=== PATIENT | female | born 1995 | race Caucasian/White ===

== ENCOUNTER 2024-05-05 11:09 | Outpatient (AMB) | payer BC, SELFPAY ==
--- NOTE | 2024-05-05 11:07 | A.OFFPC_ITS ---
Vital Signs 05/05/24 11:15 Height 5 ft 7 in Weight 182 lb 6 oz BMI 28.6 BP 102/64 Blood Pressure Location Lt brachial Position Sitting Respiration 14 Pulse 77 Pulse Source Pulse Oximeter Temp 98.2 F Temp Source Oral Pulse Oximetry (%) 99 Oxygen Delivery Method Room Air Intake Visit Reasons: [facility] from [facility] Allergies amoxicillin Allergy (Unknown, Verified 05/05/24 11:10) Unknown Sulfa (Sulfonamide Antibiotics) Allergy (Unknown, Verified 05/05/24 11:10) Unknown Tobacco use date assessed: 05/05/24 Dental Screening Dental Screen Date: 05/05/24 Did you have a dental visit in the last 12 months?: Yes Did you have a dental problem in the last 6 months where you did not have access to dental care?: No Was dental information given to patient?: Patient has dentist HPI [facility] from [facility] HPI Details Patient is a 28-year-old female who [facility]. She is transferring from [facility]. She states that we last had a physical in November with normal labs. She is overall feeling well. -she states that she did have an infecte d cyst on her upper back a couple of weeks ago so that was why she called to make the appointment but has since gone away. She states she stop manipulating the area and symptoms resolved. Psych: Following with a psychiatrist in her anxiety, depression and ADHD currently well-controlled with Adderall, buspirone and fluoxetine. No SI/HI General: Recently started working out and weightlifting and states that this is helpful. She is feeling better physically and mentally. Neuro: Has infrequent migraines in use is rizatriptan p.r.n. along with Zofran. 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 [facility] Medical History (Updated 05/05/24 @ 12:49 by Oly Guevara PA-C) Recurrent cold sores Overweight with body mass index (BMI) of 28 to 28.9 in adult Generalized anxiety disorder Dysthymia Asthma ADHD Social History Housing: House Patient Tobacco Use Status: Never used Tobacco e-Cigarette/Vaping Use: Never Used Second Hand Smoke Exposure: No service: No Current occupational status: unemployed Cognitive needs: No Hearing needs: No Vision needs: Yes (contacts) Questionnaire PHQ-9 Over the last 2 weeks, how often have you been bothered by any of the following problems? 1. Little interest or pleasure in doing things: not at all 2. Feeling down, depressed, or hopeless: not at all 3. Trouble falling or staying asleep, or sleeping too much: not at all 4. Feeling tired or having little energy: not at all 5. Poor appetite or overeating: not at all 6. Feeling bad about yourself - or that you are a failure or have let yourself or your family down: not at all 7. Trouble concentrating on things, such as reading the newspaper or watching television: not at all 8. Moving or speaking so slowly that other people could have noticed. Or the opposite - being so fidgety or restless that you have been moving around a lot more than usual: not at all 9. Thoughts that you would be better off or of hurting yourself in some way: not at all Total score: 0 Depression Screening Interpretation: Negative Depression Screening Done: Yes 63553 - PHQ-9 Billing: Yes Source: Developed by Drs. Patricio Rowe, Gladis Garcia, Feliz Hidalgo and colleagues, with an educational elio from [employer]. Thrive Questionnaire Date Thrive assessed: 05/05/24 I am a: Patient What is your living situation today?: I have a steady place to live Within the past 12 months, did the food you bought not last and you didn't have the money to get more?: Never true Within the past 12 months, did you worry whether your food would run out before you got money to buy more?: Never true Do you have trouble paying for medicines?: No Do you have trouble getting transportation to medical appointments?: No Do you have trouble paying your heating and electricity bill?: No Do you have trouble taking care of your child, family member or friend?: No Do you have trouble with day-to-day activities such as bathing, preparing meals, shopping, managing finances, etc.?: No Are you currently unemployed and looking for a job?: No Are you interested in more education?: No Please select the resources that you would like help with: None Currently or been in a relationship where the following occur: No concerns reported THRIVE Score: 0 AUDIT C Alcohol Use Questionnaire (AUDIT-C) 1. How often do you have a drink containing alcohol?: 2-4 times a month 2. How many drinks containing alcohol do you have on a typical day when you are drinking?: 3 or 4 3. How often do you have six or more drinks on one occasion?: Never Total Score: 3 Score Reviewed/Action Taken: Yes NAKUL-7 AMB Questionnaire NAKUL-7 Date NAKUL - 7 assessed: 05/05/24 Feeling nervous, anxious, or on edge: 0 = Not at all Not being able to stop or control worryin = Not at all Worrying too much about different things: 0 = Not at all Trouble relaxin = Not at all Being so restless that it is hard to sit still: 0 = Not at all Becoming easily annoyed or irritable: 1 = Several days Feeling afraid as if something awful might happen: 0 = Not at all Total NAKUL-7 score (0-4 normal; 5-9 mild; 10-14 moderate; 15-21 severe): 1 Source: Developed by Drs. Patricio Rowe, Gladis Garcia, Feliz Hidalgo and colleagues, with an educational elio from [employer]. NAKUL-7 Assessment Billing NAKUL-7 Assessment Tool: NAKUL-7 Assessment 31607 Physical exam (Primary Care) Vital Signs: Last Vital Signs Temp 98.2 F 05/05/24 11:15 Pulse 77 05/05/24 11:15 Resp 14 05/05/24 11:15 BP 102/64 05/05/24 11:15 Pulse Ox 99 05/05/24 11:15 Oxygen Delivery Method Room Air 05/05/24 11:15 BMI result Body Mass Index 28.6 Tobacco/Smoking Status: Tobacco use Status Tobacco use date assessed 05/05/24 05/05/24 11:17 Patient Tobacco Use Status Never used Tobacco 05/05/24 11:17 e-Cigarette/Vaping Use Never Used 05/05/24 11:17 PHQ-9: PHQ-9 Score PHQ-9: Total score 0 05/05/24 12:12 Depression Screening Interpretation: Negative Thrive Assessment: Date of Thrive Assessment Date Thrive assessed 05/05/24 05/05/24 12:12 Currently or been in a relationship where the following occur: No concerns reported Const Orientation/consciousness: patient oriented x3 HENMT Ears: hearing grossly normal bilaterally Neck Thyroid: Thyroid normal Lymphatic: no lymphadenopathy noted Resp Auscultation: clear to auscultation bilaterally Cardio Rate: regular rate Rhythm: regular rhythm Heart sounds: S1 normal heart sound present and S2 normal heart sound present GI Inspection: Yes normal to inspection Palpation (GI): Soft to palpation and Other GI palpation findings present (nontender, no cva tenderness) Auscultation: normoactive bowel sounds Rectal Exam - Female: deferred Skin General skin exam: no rashes or lesions noted Neuro General: patient oriented x3, gait normal and no focal motor deficits Assessment and Plan Assessment & Plan (1) Overweight with body mass index (BMI) of 28 to 28.9 in adult: Code(s): E66.3 - Overweight; Z68.28 - Body mass index [BMI] 28.0-28.9, adult Plan: She is working on a healthier lifestyle with diet and exercise. 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 (2) Generalized anxiety disorder: Code(s): F41.1 - Generalized anxiety disorder Plan: Currently well-controlled. Continue current regimen and follow up with Psychiatry. (3) Dysthymia: Code(s): F34.1 - Dysthymic disorder Plan: as above (4) Migraines: Code(s): G43.909 - Migraine, unspecified, not intractable, without status migrainosus Qualifiers: Migraine type: periodic headache syndrome Intractability: not intractable Qualified Code(s): G43.C0 - Periodic headache syndromes in child or adult, not intractable Plan: well controlled and managed. unchanged Plan f/u for a cpe or sooner prn. Coding Level of Care Code Est Pt Level 4 (41995) Diagnoses Overweight with body mass index (BMI) of 28 to 28.9 in adult E66.3; Z68.28 Generalized anxiety disorder F41.1 Dysthymia F34.1 Periodic headache syndrome, not intractable G43.C0 Migraine type: periodic headache syndrome Intractability: not intractable Additional Codes NAKUL-7 Assessment Billing - NAKUL-7 Assessment Tool: NAKUL-7 Assessment 40257 ([id number])
[2024-05-05 11:15] VITALS: BP 102/64; PULSE 77; RESP 14; TEMP 36.8; O2SAT 99; BMI 28.6
== END 2024-05-05 12:04 | disposition home or self-care (01) ==
PROVIDERS: PCP Physician Assistant; Visit Provider Physician Assistant
DX: F41.1 Generalized anxiety disorder (principal); E66.3 Overweight; Z68.28 Body mass index [BMI] 28.0-28.9, adult; F34.1 Dysthymic disorder; G43.C0 Periodic headache syndromes in child or adult, not intractable
CPT/HCPCS: 99214

== ENCOUNTER 2024-05-11 15:16 | Outpatient (AMB) | payer BC, SELFPAY ==
--- NOTE | 2024-05-11 15:20 | MHC.PC.OV ---
Vital Signs 05/11/24 15:25 Height 5 ft 7 in Weight 185 lb 2 oz BMI 29.0 BP 110/64 Blood Pressure Location Rt brachial Position Sitting Respiration 16 Pulse 74 Pulse Source Pulse Oximeter Temp 98.0 F Temp Source Oral Pulse Oximetry (%) 94 Oxygen Delivery Method Room Air Intake Visit Reasons: strep Throat Intake Note: patient here C/O having strep throat. Dependency Case Manager Required: No Is last menstrual period known: Yes Last menstrual period: 04/20/24 Post menopausal: No Patient : No Allergies amoxicillin Allergy (Unknown, Verified 05/11/24 15:45) Unknown Sulfa (Sulfonamide Antibiotics) Allergy (Unknown, Verified 05/11/24 15:45) Unknown Medication List - Last Reconciled 05/11/24 by Radha Fontana CNP buspirone 10 mg PO TID fluoxetine 10 mg PO DAILY methylphenidate HCl CD 30 mg PO QAM ondansetron HCl 4 mg PO Q8H PRN rizatriptan 5 mg PO PRN valacyclovir mg PO Tobacco use date assessed: 05/05/24 Dental Screening Dental Screen Date: 05/05/24 HPI HPI Comments History of Present Illness Details 28-year-old female presents with complaints of sore throat with yellow patches. She reports pain with swallowing on the right side of her throat. Her symptoms have been ongoing for the past 3 days and has progressively gotten worse. She took Advil 250mg this morning with significant improvement of her pain; the pain is starting again. She denies headache, difficulty breathing, chest pain, cough, fever, chills, body aches, fatigue, or weakness. [facility] Medical History (Updated 05/11/24 @ 15:48 by Radha Fontana CNP) Recurrent cold sores Overweight with body mass index (BMI) of 28 to 28.9 in adult Generalized anxiety disorder Dysthymia Asthma ADHD Social History Housing: House Patient Tobacco Use Status: Never used Tobacco e-Cigarette/Vaping Use: Never Used Second Hand Smoke Exposure: No Patient : No service: No Current occupational status: unemployed Cognitive needs: No Hearing needs: No Vision needs: Yes (contacts) Female Reproductive History Menstrual Date of last menstrual period: 04/20/24 Questionnaire Thrive Questionnaire Date Thrive assessed: 05/05/24 NAKUL-7 AMB Questionnaire NAKUL-7 Date NAKUL - 7 assessed: 05/05/24 Source: Developed by Drs. Patricio Rowe, Gladis Garcia, Feliz Hidalgo and colleagues, with an educational elio from [employer]. Review of Systems Const Details: Const Denies chills, Denies fatigue, Denies fever(s), Denies headache(s) and Denies weakness ENT Reports as per HPI Card Denies chest pain, Denies lightheadedness, Denies dyspnea and Denies other (Palpitations) Resp Denies cough, Denies dyspnea, Denies wheezing and Denies other ( shortness of breath) GI Denies abdominal pain, Denies melena, Denies hematochezia, Denies change in bowel habits, Denies dyspepsia and Denies nausea Denies hematuria and Denies dysuria Musc Denies abnormal gait, Denies myalgias, Denies arthralgias, Denies numbness and Denies tingling Skin/Breast Denies rash, Denies unusual bruising and Denies wounds Neuro Denies abnormal gait, Denies dizziness, Denies headache(s), Denies memory loss, Denies numbness, Denies Sensory deficit (Neuro), Denies tingling and Denies weakness Psych Denies anxiety, Denies depression, Denies memory loss Endo Denies cold intolerance, Denies fatigue, Denies heat intolerance, Denies polydipsia and Denies polyuria Aller/Immun Denies wheezing Physical exam (Primary Care) Vital Signs: Last Vital Signs Temp 98.0 F 05/11/24 15:25 Pulse 74 05/11/24 15:25 Resp 16 05/11/24 15:25 BP 110/64 05/11/24 15:25 Pulse Ox 94 05/11/24 15:25 Oxygen Delivery Method Room Air 05/11/24 15:25 BMI result Body Mass Index 29.0 Tobacco/Smoking Status: Tobacco use Status Tobacco use date assessed 05/05/24 05/11/24 15:28 Patient Tobacco Use Status Never used Tobacco 05/11/24 15:28 e-Cigarette/Vaping Use Never Used 05/11/24 15:28 Thrive Assessment: Date of Thrive Assessment Date Thrive assessed 05/05/24 05/11/24 15:28 Const Other: General: no acute distress and well developed Nutritional Appearance: well nourished Orientation/consciousness: patient oriented x3 HENMT Head is normocephalic Bilateral ear canal and TM are normal Nasal turbinates and is pink and moist Right tonsil with significant edema and erythema and yellow patches, consistent with strep pharyngitis. Left tonsil and rest of oral mucosa is normal Sinuses are nontender with palpation No auricular or cervical lymphadenopathy Eyes General: appearance normal, both eyes and all related structures Pupils: Equal, round and reactive pupils present EOM: EOMs intact bilaterally Resp Effort & Inspection: normal respiratory effort Auscultation: clear to auscultation bilaterally Cardio Rate: regular rate Rhythm: regular rhythm Heart sounds: S1 normal heart sound present, S2 normal heart sound present, no gallops, no murmurs and no rubs GI Palpation (GI): No Abdominal aortic bruit present, Soft to palpation, nontender, No hepatosplenomegaly present and No Rebound tenderness present Auscultation: normal bowel sounds General: Yes no CVA tenderness Back/Spine/Pelvis Back: no CVA tenderness Cervical Spine: cervical ROM normal and No Cervical spine tenderness Thoracic/Lumbar Spine: thoraco-lumbar ROM normal, No pain with thoraco-lumbar ROM, No thoracic spinal tenderness and No lumbar spinal tenderness Extrem General: Yes normal to inspection, No edema and No calf tenderness Skin General: warm and dry. Normal skin color. Normal skin turgor Neuro General: patient oriented x3, gait normal and no focal neuro deficit Cranial nerves: Yes Equal, round and reactive pupils present Cognition (Neuro): normal cognition Gait exam (Neuro): Normal gait present Sensory Exam: No Sensory deficit (Neuro) Psych Appearance: grossly normal Affect: normal affect Attitude: cooperative Thought process: Normal thought process present Assessment and Plan Assessment & Plan (1) Strep pharyngitis: Code(s): J02.0 - Streptococcal pharyngitis Plan: Right tonsil with significant edema and erythema and yellow patches, consistent with strep pharyngitis. Left tonsil and rest of oral mucosa is normal Z-Caleb ordered. Advised to take as prescribed May take Advil 250 mg every 6 hours as needed for pain, fever, or discomfort Adequate hydration encouraged Follow-up with worsening or new symptoms Verbalized understanding and agreed with the treatment plan Medications: New azithromycin (Zithromax Z-Caleb) For 250 mg dose pack: take 500 mg today (day 1), then 250 mg for 4 days (days 2-5) PO 6 tabs 0RF Coding Level of Care Code Tele New Pt Level 4 (19199) Diagnoses Strep pharyngitis J02.0
[2024-05-11 15:25] VITALS: BP 110/64; PULSE 74; RESP 16; TEMP 36.7; O2SAT 94; BMI 29.0
== END 2024-05-11 15:45 | disposition home or self-care (01) ==
PROVIDERS: PCP Physician Assistant; Visit Provider Nurse Practitioner Family
DX: J02.0 Streptococcal pharyngitis (principal)
CPT/HCPCS: 99204

== ENCOUNTER 2025-01-20 08:05 | Outpatient (AMB) | payer BC, SELFPAY ==
--- NOTE | 2025-01-20 08:10 | A.OFFPC_ITS ---
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 Psych: Following with a psychiatrist in her anxiety, depression and ADHD currently well-controlled with ritalin and wellbutrin. No SI/HI General: Recently started working out and weightlifting and states that this is helpful. She is feeling better physically and mentally. Neuro: Has infrequent migraines in use is rizatriptan p.r.n. along with Zofran. Drafter Detail: Up-to-date with marcelo. [facility] Medical History (Updated 01/20/25 @ 08:17 by Oly Guevara PA-C) Recurrent cold sores Overweight with body mass index (BMI) of 28 to 28.9 in adult Generalized anxiety disorder Dysthymia Asthma ADHD Social History Housing: House Patient Tobacco Use Status: Never used Tobacco e-Cigarette/Vaping Use: Never Used Second Hand Smoke Exposure: No service: No Current occupational status: unemployed Cognitive needs: No Hearing needs: No Vision needs: Yes (contacts) Questionnaire PHQ-9 Over the last 2 weeks, how often have you been bothered by any of the following problems? 1. Little interest or pleasure in doing things: not at all 2. Feeling down, depressed, or hopeless: not at all 3. Trouble falling or staying asleep, or sleeping too much: not at all 4. Feeling tired or having little energy: not at all 5. Poor appetite or overeating: not at all 6. Feeling bad about yourself - or that you are a failure or have let yourself or your family down: not at all 7. Trouble concentrating on things, such as reading the newspaper or watching television: not at all 8. Moving or speaking so slowly that other people could have noticed. Or the opposite - being so fidgety or restless that you have been moving around a lot more than usual: not at all 9. Thoughts that you would be better off or of hurting yourself in some way: not at all Total score: 0 Depression Screening Interpretation: Negative Depression Screening Done: Yes 12511 - PHQ-9 Billing: Yes Source: Developed by Drs. Patricio Rowe, Gladis Garcia, Feliz Hidalgo and colleagues, with an educational elio from [employer]. Thrive Questionnaire Date Thrive assessed: 01/20/25 I am a: Patient What is your living situation today?: I have a steady place to live Within the past 12 months, did the food you bought not last and you didn't have the money to get more?: Never true Within the past 12 months, did you worry whether your food would run out before you got money to buy more?: Never true Do you have trouble paying for medicines?: No Do you have trouble getting transportation to medical appointments?: No Do you have trouble paying your heating and electricity bill?: No Do you have trouble taking care of your child, family member or friend?: No Do you have trouble with day-to-day activities such as bathing, preparing meals, shopping, managing finances, etc.?: No Are you currently unemployed and looking for a job?: No Are you interested in more education?: No Please select the resources that you would like help with: None Currently or been in a relationship where the following occur: No concerns reported THRIVE Score: 0 AUDIT C Alcohol Use Questionnaire (AUDIT-C) 1. How often do you have a drink containing alcohol?: 2-4 times a month 2. How many drinks containing alcohol do you have on a typical day when you are drinking?: 3 or 4 3. How often do you have six or more drinks on one occasion?: Less than monthly Total Score: 4 NAKUL-7 AMB Questionnaire NAKUL-7 Date NAKUL - 7 assessed: 01/20/25 Feeling nervous, anxious, or on edge: 0 = Not at all Not being able to stop or control worryin = Not at all Worrying too much about different things: 0 = Not at all Trouble relaxin = Not at all Being so restless that it is hard to sit still: 0 = Not at all Becoming easily annoyed or irritable: 0 = Not at all Feeling afraid as if something awful might happen: 0 = Not at all Total NAKUL-7 score (0-4 normal; 5-9 mild; 10-14 moderate; 15-21 severe): 0 Source: Developed by Drs. Patricio Rowe, Gladis Garcia, Feliz Hidalgo and colleagues, with an educational elio from [employer]. NAKUL-7 Assessment Billing NAKUL-7 Assessment Tool: NAKUL-7 Assessment 08931 Physical exam (Primary Care) Vital Signs: Last Vital Signs Pulse 81 01/20/25 08:13 Resp 16 01/20/25 08:13 BP 106/64 01/20/25 08:13 Pulse Ox 97 01/20/25 08:13 Oxygen Delivery Method Room Air 01/20/25 08:13 BMI result Body Mass Index 28.7 Tobacco/Smoking Status: Tobacco use Status Tobacco use date assessed 05/05/24 05/11/24 15:28 Patient Tobacco Use Status Never used Tobacco 05/11/24 15:28 e-Cigarette/Vaping Use Never Used 05/11/24 15:28 Depression Screening Interpretation: Negative Thrive Assessment: Date of Thrive Assessment Date Thrive assessed 01/13/25 01/13/25 19:02 Currently or been in a relationship where the following occur: No concerns reported Const Orientation/consciousness: patient oriented x3 HENMT Ears: hearing grossly normal bilaterally and TM's normal bilaterally General nose exam: No nasal polyps present Face and sinus: Yes sinuses nontender Mouth: Normal oral and palatal mucosa present Eyes Pupils: Equal, round and reactive pupils present EOM: EOMs intact bilaterally Neck Neck: Yes full ROM and Yes no lymphadenopathy Thyroid: Thyroid normal Chest Chest palpation & inspection: normal inspection of the chest Resp Auscultation: clear to auscultation bilaterally Cardio Rate: regular rate Rhythm: regular rhythm Heart sounds: S1 normal heart sound present and S2 normal heart sound present Peripheral pulses: Peripheral pulses 2+ throughout GI Other: Soft, nontender Auscultation: normal bowel sounds Rectal Exam - Female: deferred General: Yes no CVA tenderness Back/Spine/Pelvis Other: Nontender Back: no CVA tenderness Skin General skin exam: no rashes or lesions noted Neuro General: patient oriented x3, gait normal, CN's II-XI intact bilaterally and deep tendon reflexes 2+ bilaterally Cranial nerves: Yes Equal, round and reactive pupils present Motor exam (neuro): 5/5 motor strength present throughout Sensory Exam: double simultaneous stimulation for sensation normal Coordination: [id number] test normal and Romberg test negative Extrem General: Yes normal to inspection and Yes full ROM Psych Affect: normal affect Attitude: cooperative Thought process: Normal thought process present Thought content: Normal thought content present Insight: Good insight present (Psych) Judgement: Good judgement present (Psych) Coding Level of Care Code Est Pt Prev Care 18-39y(99891) Diagnoses Routine general medical examination at a health care facility Z00.00 Dysthymia F34.1 Generalized anxiety disorder F41.1 ADHD F90.9 Additional Codes NAKUL-7 Assessment Billing - NAKUL-7 Assessment Tool: NAKUL-7 Assessment 76304 ([id number]) PHQ-9 - 62271 - PHQ-9 Billing: Yes ([id number]) Assessment & Plan Assessment & Plan (1) Routine general medical examination at a health care facility: Code(s): Z00.00 - Encounter for general adult medical examination without abnormal findings Plan: Health maintenance reviewed. Labs ordered today. (2) Dysthymia: Code(s): F34.1 - Dysthymic disorder Category: Medical Plan: Currently well-controlled. Follows with psychiatry (3) Generalized anxiety disorder: Code(s): F41.1 - Generalized anxiety disorder Category: Medical Plan: As above (4) ADHD: Code(s): F90.9 - Attention-deficit hyperactivity disorder, unspecified type Category: Medical Plan: As above Orders: Orders Comprehensive Garrison. Panel Fast Today F34.1 - Dysthymic disorder, F41.1 - Generalized anxiety disorder, F90.9 - Attention-deficit hyperactivity disorder, unspecified type, Z00.00 - Encounter for general adult medical examination without abnormal findings Lipid Panel Today F34.1 - Dysthymic disorder, F41.1 - Generalized anxiety disorder, F90.9 - Attention-deficit hyperactivity disorder, unspecified type, Z00.00 - Encounter for general adult medical examination without abnormal findings Magnesium Today F34.1 - Dysthymic disorder, F41.1 - Generalized anxiety disorder, F90.9 - Attention-deficit hyperactivity disorder, unspecified type, Z00.00 - Encounter for general adult medical examination without abnormal findings Complete Blood Count Auto Diff Today F34.1 - Dysthymic disorder, F41.1 - Generalized anxiety disorder, F90.9 - Attention-deficit hyperactivity disorder, unspecified type, Z00.00 - Encounter for general adult medical examination without abnormal findings Vitamin B12 and Folate Today F34.1 - Dysthymic disorder, F41.1 - Generalized anxiety disorder, F90.9 - Attention-deficit hyperactivity disorder, unspecified type, Z00.00 - Encounter for general adult medical examination without abnormal findings TSH reflex Free T4 Today F34.1 - Dysthymic disorder, F41.1 - Generalized anxiety disorder, F90.9 - Attention-deficit hyperactivity disorder, unspecified type, Z00.00 - Encounter for general adult medical examination without abnormal findings
--- OUTSIDE RECORDS SUMMARY | 2025-01-20 08:11 | XMS_ITS | Patient Health Record ---
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 Name Role Phone Oly Guevara Primary Care Provider UnavailBurton Pina Unavailable [phone] Анна Pittman Unavailable Unavailable Reason For Referral Reason CHANTELL Referring Provider First Name Анна Referring Provider Last Name Zain Referred Organization [facility] Referred Provider Burton Horn Referred Address [address],[facility] [address] [facility],[place], [place],[address], Referred Provider Specialty Pulmonology General Notes Anika Landry 2023 03:49:19 PM >Appt scheduled for Oct 07 at 3:15pm Referral Priority Routine Medications Medication SIG (Take, Route, Frequency, Duration) Notes Start Date End Date Status buPROPion HCl ER (XL) 150 MG Oral for 60 Days Active busPIRone HCl 5 MG TAKE 1 TABLET BY MOUTH THREE TIMES DAILY Oral for 30 Days Not-Taking Methylphenidate HCl 10 MG Oral for 30 Days Active Azithromycin 250 MG Oral for 5 Days Not-Taking Azithromycin 250 MG Oral for 5 Days Not-Taking Methylphenidate HCl ER (CD) 20 MG TAKE 1 CAPSULE BY MOUTH EVERY MORNING ADHD Oral for 30 Days Not-Taking Rizatriptan Benzoate 5 MG TAKE 1 TABLET BY MOUTH DAILY NEEDED FOR MIGRAINE HEADACHE. MAY REPEAT DOSE 1 TIME IN 2 HOURS Oral for 9 Days Active Azithromycin 250 MG Oral for 5 Days Active FLUoxetine HCl 10 MG TAKE 1 CAPSULE BY MOUTH EVERY MORNING Oral for 30 Days Active Tretinoin 0.025 % External for 30 Days Active Tretinoin 0.025 % Apply A SMALL AMOUNT ONCE DAILY AT BEDTIME 2-3 DAYS A WEEK, AND increase with tolerance External for 30 Days Active Dapsone 7.5 % APPLY TO THE AFFECTE D AREA(S) EVERY MORNING External for 30 Days Active Methylphenidate HCl 10 MG TAKE 1 TABLET BY MOUTH TWICE DAILY Oral for 30 Days Active Social History Sex Assigned At : Social History Observation Description Sex Assigned At Female Section Notes: Social drinker of alcohol. Problems Problem Type SNOMED Code ICD Code Onset Dates Problem Status W/U Status Risk Notes Problem [id number] CHANTELL (obstructive sleep apnea) (G47.33) Active confirmed Problem 57359645 Anxiety (F41.9) Active confirmed Problem 071332821 Overweight (BMI 25.0-29.9) (E66.3) Active confirmed Vital Signs Heart Rate 65 /min 10/11/2024 NECK 13.3 INCHE S Temperature 98.4 degrees Fahrenheit 10/11/2024 NECK 13.3 INCHES Blood pressure diastolic 58 mm Hg 10/11/2024 NEC K 13.3 INCHES Oximetry 99 % 10/11/2024 NECK 13.3 INCHE S Height-cm 167.64 cm 10/11/2024 NECK 13.3 INCHE S Weight-kg 81.9 kg 10/11/2024 NECK 13.3 INCHE S Height 5 ft 6 in in 10/11/2024 NECK 13.3 INCHE S Blood pressure systolic 116 mm Hg 10/11/2024 NECK 13.3 INCHES Weight 180.6 lbs 10/11/2024 NECK 13.3 INCHE S BMI 29.15 kg/m2 10/11/2024 NECK 13.3 INCHE S Encounters Encounter Location Date Provider Diagnosis [address] [address] 10/11/2024 Burton Horn CHANTELL (obstructive sleep apnea) G47.33 ; Anxiety F41.9 ; TMJ syndrome M26.629 and Overweight (BMI 25.0-29.9) E66.3 Assessments Encounter Date Diagnosis (ICD Code) Assessment Notes Treatment Notes Treatment Clinical Notes Section Notes 10/11/2024 CHANTELL (obstructive sleep apnea) (ICD-10 - G47.33) Assessment & Plan: 1. Mild obstructive sleep apnea, AHI of 6, without cardiac comorbidities. She does have anxiety, TMJ but denies significant sleep symptoms - Discussed treatment options including CPAP, weight loss, and oral appliance therapy. Patient not intesrested in CPAP therapy currently - Explained that oral appliance for sleep apnea is more comprehensive than current prison guard and pulls jaw forward to open airway, but may be covered by insurance unlike TMJ appliance - Advised to consider CPAP if symptoms worsen or if any cardiac issues like hypertension develop - Encouraged weight loss efforts and rechecking sleep study in about a year - Discussed that sleep apnea can contribute to TMJ symptoms 3. Anxiety - Acknowledged impact on sleep and TMJ - Explained that untreated sleep apnea can worsen anxiety symptoms - Anxiety currently at a manageable level 10/11/2024 Anxiety (ICD-10 - F41.9) 10/11/2024 TMJ syndrome (ICD-10 - M26.629) 10/11/2024 Overweight (BMI 25.0-29.9) (ICD-10 - E66.3) Plan Of Treatment No Information Insurance Providers Payer Name Payer Address Payer Phone Subscriber Number Group Number Insured Name Patient Relationship to Insured Coverage Start Date Coverage End Date [facility] [address] [place], [place] [phone] [id number] Gisel Starks Self - patient is the insured 4 Medical (General) History Surgical History Surgery Date(Month/Year) NA Hospitalization History Reason Date(Month/Year) Ankle injury. 2023
--- OUTSIDE RECORDS SUMMARY | 2025-01-20 08:11 | XMS_ITS | Data Portability ---
Author Organization [facility] [employer] KP [facility] Operating Address [address] [place] [address] Care Team Providers Care Reverse Unit Operator Fisherman Name Role Phone DANIEL SCHMID Primary Care Provider [phone] [facility] General Surgeon [phone] ROSA DURAN General Surgeon Assessment No assessment recorded. Plan of Treatment Reminders Order Date Submit Date Provider Last Modified By Organization Details Last Modified Time Details Appointments None recorded. Lab None recorded. Referral None recorded. Procedures None recorded. Surgeries None recorded. Imaging None recorded. Medication Orders ibuprofen 800 mg tablet 2019 020 INTERFACE [id number], [address] [place], [address], 0 08:45:27 Enteric Coated Aspirin 81 mg tablet,del ayed release 2019 020 INTERFACE [id number], [address] [place], [address], 0 08:45:26 oxycodone 5 mg tablet 2019 020 INTERFACE [id number], [address] [place], [address], 0 08:45:28 acetaminop hen 500 mg tablet 2019 020 INTERFACE [id number], [address] [place], [address], 0 08:45:27 Senna Plus 8.6 mg-50 mg tablet 2019 020 INTERFACE [id number], [address] [place], [address], 0 08:45:26 Narcan 4 mg/actuati on nasal spray 2019 020 INTERFACE [id number], [address] [place], [address], 0 08:45:28 Patient TargetsNo targets recorded. Patient InstructionsNo instructions recorded. Reason for Referral None Reported. Procedures Surgical History Date Name Laterality Status Provider Name and Address Organization Details Recorded Time 11/05/2019 Foot & Ankle Op Note completed Rosa Duran MD [address] [facility],[address], [place], [address], [facility], [facility] 11/05/2019 10:00:50 Imaging Results None recorded. Procedure Notes None recorded. Medical Equipment None Reported. Medications Name Sig Start Date Stop Date Status Note LastModified by Organization Details LastModified Time ibuprofen 800 mg tablet Take 1 tablet 3 times a day by oral route as needed. 2019 active Not Available Not Available Not Avai lable acetaminophen 500 mg tablet Take 2 tablets every 8 hours by oral route. 2019 active Not Available Not Available Not Avai lable Enteric Coated Aspirin 81 mg tablet,delayed release Take 1 tablet twice a day by oral route for 14 days. 2019 active Not Available Not Available Not Avai lable oxycodone 5 mg tablet Take 1 tablet(s ) EVERY 6 HOURS by oral route as needed for pain 2019 active Not Available Not Available Not Avai lable Senna Plus 8.6 mg-50 mg tablet Take 2 tablets every day by oral route. 2019 active Not Available Not Available Not Avai lable Narcan 4 mg/actuation nasal spray take by nasal route as needed 2019 active Not Available Not Available Not Avai lable Vitals None Recorded Social History None recorded. Functional Status None recorded. Mental Status None recorded. Family History Nothing Reported. Medical History No medical history recorded. Gynecological HistoryNo gynecological history recorded. Obstetrics History GPAL:G 0 P 0 0 0 0 Past Encounters Encounter ID Performer Location Encounter Start Date Encounter Closed Date Diagnosis/Indication Diagnosis SNOMED-CT Code Diagnosis ICD10 Code Diagnosis Note [id number] Rosa griffin MD [facility] [address] [place] [address] 01/08/2018 12:38:41 01/08/2018 13:29:17 [id number] MD [facility] [address] [place] [address] 02/23/2018 10:13:38 02/23/2018 15:14:59 [id number] MD [facility] [address] [place] [address] 08/12/2018 07:40:48 08/12/2018 08:58:18 [id number] MD [facility] [address] [place] [address] 03/10/2019 08:22:29 03/16/2019 08:06:59 [id number] Rosa griffin MD [place] [facility] [address] [place] [address] 08/18/2019 11:31:49 08/18/2019 13:19:03 [id number] MD isabelle Cohen [facility] Operating [address] [facility] [address] [facility] [place] [address] 11/05/2019 06:59:54 11/14/2019 10:14:07 Foot pain [id number] M79.673 [id number] MD Jose [facility] [address] [place] [address] 11/17/2019 09:12:22 11/17/2019 10:19:57 Health Concerns Section Related Observation LastModified by Organization Detai ls LastModified Time None Recorded Concern Status LastModified by Organization Details LastModified Time None Recorded Advance Directives Directive None Recorded Payers Encounter Date Sequence Insurance Name Policy Number Policy Street Covered Member ID Street Member ID Guarantor Name 11/05/2019 1 [place] [facility] [place] [id number] Janeth Starks [id number] Dayanna Starks OBGyn Episode No OBEpisode recorded.
--- OUTSIDE RECORDS SUMMARY | 2025-01-20 08:11 | XMS_ITS | Data Portability ---
Author Organization [facility] [employer] Address [address] [facility] [address] [place] [address] Care Team Providers Care Instructional Systems Design Consultant Name Role Phone TREVOREDEL DesirISE Primary Care Provider [phone] Assessment Encounter Date Assessment Date Assessment LastModified by Organization Details LastModified Time 02/23/2018 02/23/2018 Patient doing quite well for 5th metatarsal fracture. At this time will allow her to progress activities to running and cutting and pivoting depending on tolerance. She returned back to of soccer specific activities as she feels comfortable doing. She had some questions about her brace which I think would be reasonable for her to continue using these specially on the right side explained her at this point it is optional depending on how she feels the stability ankle is although that a brace will protect from further injuries would like a to re-injure her surgically repaired ligaments. we will show her options for brace we have here is the 1 she currently has a not very effective for her. Giving a note releasing her back to soccer activities. Follow up me on an as-needed basis not know she needs a note giving full clearance for soccer. [email or web address] Not available 02/23/2018 11:11:57 08/12/2018 08/12/2018 Patient diagnose d with right foot sesamoiditis. 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 We discussed the possibility of this progressing becoming more problematic for her. Recommended this time point conservative measures to include offloading with metatarsal or dancer's pads, possible corticosteroid injections in the future and activity modifications. We discussed he could consider surgery in the future if necessary in this would include excision of the fibular sesamoid but would like to avoid this if at all possible. She will follow up before returning back to school in the fall. [email or web address] Not available 08/12/2018 15:41:16 03/10/2019 03/10/2019 Patient is likel y suffering from a ganglion cyst or hematoma. We discussed treatment options for this including aspiration, monitoring or surgery. We discussed risk of recollected of the fluid. We discussed the possibility for infection versus hematoma or ganglion cyst. We discussed this may be possibly definitive treatment. After discussion elected to proceed with aspiration of the area. After sterile preparation the skin I was able to aspirate about 1 cc of ganglion like fluid. This significantly decreased the size of the cyst. Band-Aid was placed. She will progress activities based on comfort. If it recurs we will consider surgical excision. Follow up on as-needed basis. [email or web address] Not available 03/10/2019 09:46:38 08/18/2019 08/18/2019 Patient diagnose d with a right foot ganglion cyst communicating with her posterior tibial tendon. We discussed that the recurrence after the aspiration is not surprising but not think further aspiration distally be beneficial for her due to the high chance of recurrence. We discussed continued monitoring of the cyst and her symptoms. We discussed surgical excision of the cyst if necessary. We discussed the typical risks and recovery associated with this type of surgical intervention. We discussed the alternatives and details of surgery and postoperative care with the patient. The patient understands the concepts of surgery and the postoperative conditions required for healing. The patient further understands that surgery is somewhat unpredictable and can have unfavorable outcomes. In particular, we discussed the possible local complications of infection requiring further surgery or removal of tissue, nonhealing of the tissues and need for reoperation, nerve injury, massive infection requiring amputation and loss of limb, a bad outcome with continued or worse pain and unforeseen, unanticipated problems including complications causing severe disability or poor function. We also discussed life-threatening complications including stroke, clot, pulmonary embolism and related to the surgery or anesthesia, or other factors. The patient understands these risks and understands the surgery. We discussed the possible need for repair the posterior tibial tendon due to the rent this there to prevent recurrence of the cyst. After discussion is going to consider her options we did fill out the paperwork today and informed consent was obtained. She may elect to do this sometime over the summer or if the timing is right sometime in the near future depending upon work and school. [email or web address] Not available 08/21/2019 10:53:35 11/17/2019 11/17/2019 Patient doing well now 2 weeks status post removal of ganglion cyst. Explained intraoperative findings and pathology report. Incision healing well. Remove sutures today. We will start weight-bearing to tolerance. Will transition to a short boot and progress out of this as she feels comfortable doing. Cannot return back to work using the boot as needed. Follow up with me on as-needed basis things will get better other issues come up. bbria Not available 11/17/2019 09:42:39 Plan of Treatment Reminders Order Date Submit Date Provider Last Modified By Organization Details Last Modified Time Details Appointments None recorde d. Lab None recorde d. Referral None recorde d. Procedures None recorde d. Surgeries excisio n, lesion of tendon sheath or capsule , leg/ank le (SURG) 2018 019 [email or web address] Not available 9 10:32:28 Imaging XR, foot, 3 or more view - fa3 2017 018 [facility] (Imaging Center), [address], [address], [place], [address], 8 06:58:58 XR, foot, 3 or more view - fa [address] (Imaging Center), [address], [address], [place], [address], 8 15:15:00 Medication Orders None recorde d. Patient TargetsNo targets recorded. Patient Instructions Encounter Date Encounter Id Patient Instructions Last Modified By Organization Details Last Modified Time 02/23/2018 [id number] Three views of the right foot including AP, lateral, oblique were obtained weight-bearing. These show a healing 5th metatarsal neck fracture in appropriate alignment. Soft tissues appear to be unremarkable. No significant arthritis identified. [email or web address] Not available 02/23/2018 11:12:10 08/12/2018 [id number] Four views of the right foot including AP, lateral oblique and sesamoid view were obtained today. These show lucency within the fibular sesamoid but no significant arthritis. No obvious fracture is identified. Soft tissues are unremarkable no other fractures are identified. [email or web address] Not available 08/12/2018 15:40:42 03/10/2019 [id number] Ultrasound reviewed. This shows a fluid-filled cystic structure along the medial midfoot. [email or web address] Not available 03/10/2019 09:47:15 08/18/2019 [id number] MRI from April of this year was reviewed. This shows a slight rent in the posterior tibial tendon with ganglion cyst formation. Evidence of postsurgical changes previously as well as syndesmotic with ligament injury. [email or web address] Not available 08/21/2019 10:51:53 Reason for Referral None Reported. Results Created Date Observation Date Name Description Value Unit Range Abnormal Flag Note LastModifiedBy Organization Detail LastModifiedTime 11/05/1911/05/2019 surgi arianna patho logy study pathology report SEE NOTE TEXT Speci men: [id number] Patie nt: MARK ESPINOZA Proce dure: 2019 Medic al Recor d #: [id number] Accou nt #:[id number] Acces elaina d: 2019 /A ge/Se x: 1994 (Age: 24) F Repor jun: 2019 Locat ion/C lient : L[facility] Sub[facility] tted Phys: ROSA Griffin MD Addit ional Phys: FANI MEI MD SURGI ARIANNA PATHO LOGY REPOR T FINAL DIAGN OSIS Soft tissu e, gangl ion cyst, right foot, excis ion: -Gang lion cyst; Focal forei gn body giant cell react ion to unide ntifi ed polar izabl e forei gn mater ial DIAGN OSIS COMME NT The entir e speci men is micro scopi danielle exami jono. Re port Elect meet bravo Eda d By JOSEPH HARDEN MD ts/ 20 JOSEPH HARDEN MD The atten ding patho logis t whose signa ture appea rs on this repor t has revie wed the case mater ials and has revie wed/e dited the repor t in rende ring the final diagn osis. CLINI ARIANNA HISTO RY Pain with cyst S/P PJT repai r PRE-O PERAT EDOUARD DIAGN OSIS Right foot gangl ion/s ynovi al cyst POST- OPERA TIVE DIAGN OSIS Same GROSS DESCR IPTIO N Label ed right foot gangl ion cyst: Recei ya in forma payton is a 1.8 x 1.3 x 0.6 cm, soft, irreg ular- to-no dular fragm ent of burris-w nima- to-ta n-bro wn semit ransl ucent fibro us tissu e. Secti oning shows mucoi d berny nts. The speci men is entir alden submi tted quart ered in casse tte A1 . J0. / 20 Carey Bryant n, Surg. Path. Asst. Not Available [employer] Formerly [facility]) [address] [facility] [address], [place], [address], 11/11/2019 18:05:26 02/24/20 18 02/23/2018 XR, foot, 3 or more view http:/ [email or web address] ?Encry pted=s hAaTro YD8dLq bEUv6g %2BXZw aYqtaq 0bqfl% 2Fg9IQ a4ajBk vP9nXo QUaueC m3YtLR FvZlgJ JJ8mAn HZtai3 7e1189 AC0KsY nyMVaC gKicnq c0P [facility] (Imaging Center) [address], [place], [address], 02/23/2018 11:10:10 08/12/20 18 08/12/2018 XR, foot, 3 or more view [email or web address]:/ [email or web address] ?Encry pted=s hAaTro YD8dLq bEUv6g %2BXZw aYqtaq 0bqfl% 2Fg9IQ a4ajBk vP9nXo QUaueC m3YtLR FvZlgJ JJ8mAn HZtai3 0n5381 AC0Kvb HmFWKK gKicnq c0P [facility] (Imaging Center) [address], [place], [address], 08/12/2018 08:13:42 03/10/20 US, extre elizabeth, nonva scula r, limit ed No observ ation record ed. [email or web address] Not Available 2018 09:13:29 05/05/2005/04/2019 MRI, ankle , w/o contr ast Patien t: GALE ESPINOZA : 1994 Ashely william Phone: -- MRI ANKLE RIGHT W/WO HISTOR Y: Mass right ankle TECHNI QUE: Pre and post Gadoli nium-b ased contra st-enh anced MR images of the right ankle were perfor med on a 3 [place] magnet using intrav enous admini strati on of 11 mL of Dotare m Gadoli nium-b ased contra st. 4 mL was discar ded as waste. COMPAR BRI: None availa ble. FINDIN GS: Ligame nts: There are postsu rgical change s at the latera l ankle relate d to ligame nt recons tructi on, with thicke juan and interm ediate signal along the anteri or talofi bular and calcan eofibu lar ligame nts, with 2 soft tissue anchor s in the distal fibula , and with ill-de fined T1/T2 hyperi ntense and interm ediate signal tissue coursi ng from the fibula toward calcan eus and talus. The cardiology nurse ior talofi bular ligame nt is ill-de fined with rather promin ent edema signal along its course . The deltoi d ligame nt appear s intact . There is thicke juan of the tibial spring ligame nt. The anteri or and cardiology nurse ior inferi or tibiof ibular ligame nts appear intact , as does intero sseous ligame nt, though there is joint fluid extend ing superi radha betwee n the tibia and fibula , sugges ting prior sprain of the syndes mosis. Tendon s: Tibial is cardiology nurse ior appear s intact , with small volume fluid along its course . There is a narrow neck of fluid intens ity extend ing throug h the overly ing retina culum to clinic with a subcut aneous cyst, which itself measur es approx imatel y 14 x 13 x 6 mm. This cyst demons trates no enhanc ement follow ing contra st menstr uation . The flexor digito rum and flexor halluc is longus tendon s appear normal . The extens or tendon s are normal in appear ance and morpho logy. There is tendin opathy of the perone us brevis and longus , with partia l-thic kness split tear for his brevis , result ing in the chevr on sign but withou t full-t hickne ss tear. There is associ ated mild increa sed fluid surrou nding the tendon s, compat ible with tenosy noviti s. Achill es/[place]vania ntar Fascia : Normal Achill es tendon and planta r fascia . Joints /Bones : The visibl e bone marrow and joint spaces are normal with a physio logica l amount of fluid in the tibiot alar joint with no osteoc hondra l lesion . Periar ticula r struct ures: The tarsal tunnel neurov ascula r bundle is normal . There are intact sinus tarsi intero sseous ligame nts. The muscle s and soft tissue s are normal . IMPRES NAYELY: 1. Tibial is cardiology nurse ior tenosy noviti s with narrow neck commun icatin g to medial subcut aneous cyst. 2. Eviden ce of remote high ankle sprain , though the syndes motic ligame nts appear intact . Postop erativ e change s relate d to latera l ankle ligame nt recons tructi on. No defini te recurr ent tear, noting that extens edouard edema signal and ill-de fined ligame nt fibers along the course of the cardiology nurse ior tibiof ibular ligame nt may relate to remote injury or repeti tive stress . 3. Perone us brevis and perone us longus tendin opathy , with partia l-thic kness split tear of perone us brevis . Electr onical ly signed : 019 8:33 AM Ranjit griffin M.D. Contac t: Patien t: GALE ESPINOZA Appt No: [id number] Orderi ng physic klever: ROSA OKEEFE MD Exam Date: 2018 Finali zed: 2018 Imagin g Center : [facility]agin g [email or web address] [facility] [address] [place] [address], [address], 05/06/2019 13:53:34 Result Notes None recorded. Problems Name Problem SNOMED Code Status Onset Date Resolution Date Notes Provider Name and Address Organization Details Recorded Time Ganglion/sy novial cyst - ankle/foot Active 2018 Rosa Hawkins rn, MD [address] [address], [place], [address] , [facility] 9 09:46:58 Closed fracture of fifth metatarsal bone of right foot [id number] 9109 Active 2017 Rosa Hawkins rn, MD [address] [address], [place], [address], [facility] 8 13:03:17 Sesamoiditi s 03187736 Active 2017 Rosa Hawkins rn, MD [address] [address], [place], [address] , [facility] 8 15:41:17 Problem Notes None recorded. Procedures Surgical History Date Name Laterality Status Provider Name and Address Organization Details Recorded Time 9 FnA Aspiration Ganglion Cyst completed Rosa Duran MD [address] [address], [place], [address], [facility] 03/10/2019 09:38:06 Orthopedic Surgery completed Latoya Mccartney [facility] 11/16/2019 16:23:34 ENT Surgery completed Elekelvinre Bib [facility] 01/08/2018 14:02:44 Orthopedic Surgery completed Elenore Bib [facility] 03/10/2019 09:25:17 Imaging Results Imaging Date Name Status LastModified by Organiz ation Details LastModified Time 02/23/2018 XR, foot, 3 or more view completed [facility] (Imaging Center) [address], [place], [address], 02/23/2018 11:10:10 08/12/2018 XR, foot, 3 or more view completed [facility] (Imaging Center) [address], [place], [address], 08/12/2018 08:13:42 03/10/2019 US, extremity, nonvascular, limited completed [email or web address] Information not available 03/10/2019 09:13:29 05/04/2019 MRI, ankle, w/o contrast completed [email or web address] [facility] [address] [place] [address], [address], 05/06/2019 13:53:34 Procedure Notes None recorded. Medical Equipment None Reported. Allergies Allergen ID Allergen Name Allergen Category Reaction Reaction Severity Criticality Documentation Date Start Date Code Code System Note Provider Name and Address Organization Details Recorded Time 04468 Substance with sulfonami de structure and antibacte rial mechanism of action (substanc e) medicatio n Not available Not available Not available 01/08/2018 41821 8003 SNOMED Elenore Bib manrique, [facility] 8 14:01:06 14547 amoxicill in medicatio n Not available Not available Not available 01/08/2018 723 RxNorm Latoya manrique, [facility] 8 14:01:13 Medications Name Sig Start Date Stop Date Status Note LastModified by Organization Details LastModified Time fluoxetine 40 mg capsule 01/08 completed Not Available Not Available Not Available azithromycin 250 mg tablet 08/18 completed Not Available Not Available Not Available ibuprofen 800 mg tablet active Not Available Not Available Not Available citalopram 10 mg tablet 01/08 completed Not Available Not Available Not Available valacyclovir 1 gram tablet active Not Available Not Available Not Available dextroamphetamin e-amphetamine 10 mg tablet 01/08 completed Not Available Not Available Not Available rizatriptan 10 mg tablet active Not Available Not Available No t Available ciprofloxacin 500 mg tablet 03/10 completed Not Available Not Available Not Available ondansetron 8 mg disintegrating tablet 08/18 completed Not Available Not Available Not Available ofloxacin 0.3 % ear drops 01/08 completed Not Available Not Available Not Available lorazepam 0.5 mg tablet active Not Available Not Available Not Available dextroamphetamin e-amphetamine ER 20 mg 24hr capsule,extend release 03/10 completed Not Available Not Available Not Available triamcinolone acetonide 0.1 % topical ointment 08/12 completed Not Available Not Available Not Available dextroamphetamin e-amphetamine 15 mg tablet active Not Available Not Available No t Available fluoxetine 10 mg capsule 01/08 completed Not Available Not Available Not Available Low-Ogestrel (28) 0.3 mg-30 mcg tablet active Not Available Not Available N ot Available fluoxetine 20 mg capsule active Not Available Not Available Not Available oxycodone 5 mg tablet 11/17 completed Not Available Not Available Not Available dextroamphetamin e-amphetamine ER 15 mg 24hr capsule,extend release 01/08 completed Not Available Not Available Not Available dextroamphetamin e-amphetamine ER 25 mg 24hr capsule,extend release active Not Available Not Available Not Available Narcan 4 mg/actuation nasal spray 11/17 completed Not Available Not Available Not Available Blisovi Fe 1.5/30 (28) 1.5 mg-30 mcg (21)/75 mg (7) tablet 11/17 completed Not Available Not Available Not Available Vitals Date Recorded Body height Body mass index (BMI) Body weight Provider Name and Address Organization Details Last Updated DateTime 03/10/2019 167.64 cm 22.6 kg/m2 03666.93 g Latoya Bib [facility] 03/10/2019 08:34:47 Date Recorded Body height Body mass index (BMI) Body weight Provider Name and Address Organization Details Last Updated DateTime 08/18/2019 167.64 cm 22.6 kg/m2 95540.93 g Stephania Morales [facility] 08/18/2019 11:38:49 Date Recorded Body height Body mass index (BMI) Body weight Provider Name and Address Organization Details Last Updated DateTime 11/17/2019 167.64 cm 22.6 kg/m2 30008.93 g [facility] 11/17/2019 11:22:12 Date Recorded Body height Body mass index (BMI) Body weight Respiratory rate Provider Name and Address Organization Details Last Updated DateTime 02/23/2018 167.64 cm 22.6 kg/m2 28826.93 g 14 /min [facility] 02/23/2018 10:21:55 Date Recorded Body height Body mass index (BMI) Body weight Respiratory rate Provider Name and Address Organization Details Last Updated DateTime 08/12/2018 167.64 cm 22.6 kg/m2 99694.93 g 14 /min [facility] 08/12/2018 07:57:52 Social History Question Answer Notes LastModified by Organizat ion Details LastModified Time Tobacco Smoking Status Never Smoker [facility] 01/08/2018 14:02:22 In The Last 30 Days Have You Been Prescribed A Narcotic? Yes S/p Surgery 11/05/19 Information not available 11/17/2019 In The Last 30 Days Have You Been Prescribed A Benzodiazepine? Yes Information not available 11/17/2019 Do You Have A Prior History Of Opioid Misuse Disorder? No Information not available 08/12/2018 If Patient Was Self Referral, How Did They Hear About Us? Other Self Information not available 08/18/2019 What Was The Date Of Your Most Recent Tobacco Screening? 08/18/2019 Information not available 08/18/2019 Sex: Female Functional Status None recorded. Mental Status None recorded. Family History Relationship Description Onset Age of this Age Resolved Age Notes LastModified by Organization Details LastModified Time Unspecified Relation Blood coagulation disorder [email or web address] Not available 2017 14:02:11 Unspecified Relation Rheumatoid arthritis eignacio Not available 2017 14:02:16 Medical History Condition Response Anxiety/Depression Y Asthma Y Gynecological HistoryNo gynecological history recorded. Obstetrics History GPAL:G 0 P 0 0 0 0 Past Encounters Encounter ID Performer Location Encounter Start Date Encounter Closed Date Diagnosis/Indication Diagnosis SNOMED-CT Code Diagnosis ICD10 Code Diagnosis Note [id number] Rosa griffin MD [facility] [address] [place] [address] 01/08/2018 12:38:41 01/08/2018 13:29:17 Closed fracture of fifth metatarsal bone of right foot 7866365993 4292376 S92.351A [id number] MD Jose [facility] [address] [place] [address] 02/23/2018 10:13:38 02/23/2018 15:14:59 Closed fracture of fifth metatarsal bone of right foot 5066601188 6397814 S92.351A [id number] MD Jose [facility] [address] [place] [address] 08/12/2018 07:40:48 08/12/2018 08:58:18 Pain in right foot 3949179000 94961 M79.671 Closed fra cture of fifth metatarsal bone of right foot 8574951217 9886121 S92.351A Sesamoiditis 82230635 M2 5.871 [id number] MD Jose [facility] [address] [place] [address] 03/10/2019 08:22:29 03/16/2019 08:06:59 Ganglion/synovial cyst - ankle/foot 419427322 M67.472 [id number] MD Jose [facility] [address] [place] [address] 08/18/2019 11:31:49 08/18/2019 13:19:03 Closed fracture of fifth metatarsal bone of right foot 4752825314 6536532 S92.351A Ganglion/s ynovial cyst - ankle/foot 287784588 M67.472 [id number] Rosa griffin MD [facility] [address] [place] [address] 11/05/2019 06:59:54 11/14/2019 10:14:07 [id number] Rosa griffin MD [facility] [address] [place] [address] 11/17/2019 09:12:22 11/17/2019 10:19:57 Ganglion cyst of left ankle 7476428304 1640436 M67.472 Ganglion/s ynovial cyst - ankle/foot 895864592 M67.472 Closed fra cture of fifth metatarsal bone of right foot 6828321354 7347757 S92.351A Sesamoiditis 12411955 M2 5.871 Health Concerns Section Related Observation LastModified by Organization Detai ls LastModified Time None Recorded Concern Status LastModified by Organization Details LastModified Time None Recorded Advance Directives Directive None Recorded Payers Encounter Date Sequence Insurance Name Policy Number Policy Street Covered Member ID Street Member ID Guarantor Name 02/23/2018 1 [place] [place] [id number] Janeth Espinoza [id number] Dayanna Martinezya 08/12/2018 1 [place] [place] [id number] Janeth Espinoza [id number] Dayanna Levya 03/10/2019 1 [place] [place] [id number] Janeth Espinoza [id number] Dayanna Levya 08/18/2019 1 [place] [place] [id number] Janeth Espinoza [id number] Dayanna Levya 11/17/2019 1 [place] [place] [id number] Janeth Espinoza [id number] Dayanna Espinoza Notes Date Note Type Note Provider Name and Address Organization Details Recorded Time 02/23/2018 text/html [facility] EXT PATIENT HPIReported bypatient.Laterality Right Foot injury rolled foot 01/02/18 Secondary / Unrelated concernsNo Changes since your last visitrecent change; doing better Pain Scale0 no pain Patient presents repeat evaluation right foot. She is being treated for 5th metatarsal fracture. For patient undergone lateral ligamentous reconstruction and done quite well with this surgery. Has some questions about her braces and playing soccer going forward. Rosa Duran [facility] [address] [facility], [place], [address], [facility] 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 She was last treated for a 5th metatarsal fracture. She returned back to playing soccer last fall and had increasing pain along the plantar surface of foot underneath the metatarsal head. She played through this with taping icing and anti-inflammatory medications now having increasing pain and is now completed her soccer season. She has used a dancer's pad of some sort to try to offload the area. Rosa Duran [facility] [address] [facility] [address], [place], [address], [facility] 08/17/2018 07:05:09 03/10/2019 text/html Patient presents for repeat evaluation. She is a patient I have known for some time had surgery on her right ankle to undergo excision of accessory navicular and lateral ligamentous repair. She had also associated 5th metatarsal fracture. She started developing swelling along her medial left ankle about 2 weeks ago. She had discrete fluid collection. This increased in size and persisted. She had an ultrasound done by brake operator helper which showed a cystic area collection could be hematoma or seroma. This changed not decreased in size since her ultrasound. Not painful in any capacity. Has an abrasion slightly distal to this but this is from shoe wear. In his recent about a week or so before him. Rosa Duran [facility] [address] [facility] [address], [place], [address], [facility] 03/12/2019 13:49:46 08/18/2019 text/html FNA EXT PATIENT HPIReported bypatient.Laterality right; MRI read right ankle Secondary / Unrelated concernsNo Changes since your last visitno recent change Pain Scale0 no pain Symptomsnumbness/tin gling The patient presents repeat evaluation of her right foot. She has history of previous Kidner procedure. Having persistent cystic formation along the medial midfoot. She underwent aspiration in February of this year confirming ganglion cyst. This recurred rather quickly. She obtained an MRI in April of the year this year. She presents for evaluation due to the persistence of the cyst. She would like to consider surgical excision. She is having mild pain with certain shoe wear with it. Rosa Duran MD [address],[facility] [address], [place], [address], [facility] 08/23/2019 10:41:51 11/17/2019 text/html [id number] Repo rted bypatient.Onset/Fermín n11/05/2019- right foot repair of posteiror tibial tendon, excision of ganglion cyst, removal of right foot deep suture Associated Symptoms:no pain; no fever Two weeks postop. No problems noted denies fevers chills or calf pain. Rosa Duran MD [address], [place], [address], [facility] 11/22/2019 11:04:11 OBGyn Episode No OBEpisode recorded.
--- OUTSIDE RECORDS SUMMARY | 2025-01-20 08:11 | XMS_ITS | Patient Health Record ---
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 Name Role Phone Анна Pittman Unavailable [phone] Callie Shah Unavailable [phone] Allergies Allergen (clinical drug ingredient) Drug/Non Drug Allergy documented on EMR Reaction Allergy Type Onset Date Status amoxicillin Amoxicillin anaphylaxis Drug Allergy A ctive Substance with sulfonamide structure and antibacterial mechanism of action (substance) Sulfa Antibiotics anaphylaxis Drug Allergy Active Reason For Referral Reason mild CHANTELL Diagnosis 1 Obstructive sleep ap porfirio (adult) (pediatric) (G47.33) Referral Organization [facility] Referring Provider First Name Анна Referring Provider Last Name Zain Referring Provider Speciality Quality Assurance Test Program Manager Referred Provider Specialty Pulmonary Di seases Referral Priority Routine Medications Medication SIG (Take, Route, Frequency, Duration) Notes Start Date End Date Status buPROPion HCl ER (XL) 150 MG TAKE 1 TABL ET BY MOUTH EVERY MORNING Oral for 30 Days Active Methylphenidate HCl ER (CD) 20 MG Oral for 30 Days Active Problems Problem Type SNOMED Code ICD Code Onset Dates Problem Status W/U Status Risk Notes Problem Overweight (941725607) Overweight (E66.3) Active confirmed Problem Obstructive sleep apnea syndrome (disorder) (18460835) Obstructive sleep apnea (adult) (pediatric) (G47.33) Active confirmed Problem Acne vulgaris (20993227) Acne vulgaris (L70.0) Active confirmed Problem Dietary management surveillance (071008544) Dietary counseling and surveillance (Z71.3) Active confirmed Problem Body mass index 25-29 - overweight (763300413) Body mass index [BMI] 26.0-26.9, adult (Z68.26) Active confirmed Vital Signs Respiratory Rate 16 /min 12/01/2024 Height 67 in 12/01/2024 Weight 176 lbs 12/01/2024 BMI 27.56 kg/m2 12/01/2024 Encounters Encounter Location Date Provider Diagnosis [address] [id number] 07/20/2024 Анна Pittman Overweight E66.3 ; Acne vulgaris L70.0 and Body mass index [BMI] 26.0-26.9, adult Z68.[address] [id number] 09/14/2024 Анна Pittman Overweight E66.3 ; Acne vulgaris L70.0 ; Obstructive sleep apnea (adult) (pediatric) G47.33 and Body mass index [BMI] 26.0-26.9, adult Z68.[address] [id number] 12/01/2024 Анна Pittman Overweight E66.3 ; Acne vulgaris L70.0 ; Obstructive sleep apnea (adult) (pediatric) G47.33 and Dietary counseling and surveillance Z71.[address] [id number] 05/17/2024 Callie Shah [address] [id number] 08/31/2024 Анна Pittman [address] [id number] 09/06/2024 Анна Pittman [address] [id number] 07/20/2024 Анна Pittman Assessments Encounter Date Diagnosis (ICD Code) Assessment Notes Treatment Notes Treatment Clinical Notes Section Notes 07/20/2024 Overweight (ICD-10 - E66.3) Patient is a 28-year-old female presented clinic to [facility] naturop[facility] medicine. She complains of weight gain and acne. Has had workup with with her pcp who did not find any metabolic abnormalities. Discussed diet lifestyle length with patient including focusing on protein, healthy fats and fiber. Suspicious of cortisol balance, sleep apnea and estrogen dominance. Ordering sleep study for patient and recommending cortisol health care marketing manager and DIM detox. 07/20/2024 Acne vulgaris (ICD-10 - L70.0) Patient is a 28-year-old female presented clinic to [facility] naturop[facility] medicine. She complains of weight gain and acne. Has had workup with with her pcp who did not find any metabolic abnormalities. Discussed diet lifestyle length with patient including focusing on protein, healthy fats and fiber. Suspicious of cortisol balance, sleep apnea and estrogen dominance. Ordering sleep study for patient and recommending cortisol health care marketing manager and DIM detox. 09/14/2024 Overweight (ICD-10 - E66.3) Patient presents to follow-up. Patient reports improvement since last visit including less acne around her menstrual cycle and lasts painful and heavy menses with taking DIM. Additionally taking cortisol health care marketing manager. Feeling well but has not appreciated any significant weight loss since last visit. Has not been able to exercise to the same intensity as she did sprain her left ankle. Reviewed sleep study result which did reveal mild obstructive sleep apnea for which patient is following up with sleep medicine doctor to discuss treatment options. This may be contributing to her inability to lose weight. Obtain in office JUNAID and discussed with patient. Recommended meal plan based on findings. 09/14/2024 Acne vulgaris (ICD-10 - L70.0) Patient presents to follow-up. Patient reports improvement since last visit including less acne around her menstrual cycle and lasts painful and heavy menses with taking DIM. Additionally taking cortisol health care marketing manager. Feeling well but has not appreciated any significant weight loss since last visit. Has not been able to exercise to the same intensity as she did sprain her left ankle. Reviewed sleep study result which did reveal mild obstructive sleep apnea for which patient is following up with sleep medicine doctor to discuss treatment options. This may be contributing to her inability to lose weight. Obtain in office JUNAID and discussed with patient. Recommended meal plan based on findings. 12/01/2024 Overweight (ICD-10 - E66.3) Patient presents to follow-up. Patient completed a smoothie detox on her own and lost about 5 pounds. Repeated an body scan measurements which did show a reduction in total body weight. Will continue monitoring body fat percentage and skeletal mass. Discussed slight caloric deficit with sufficient protein and regular exercise and hydration. Additionally recommending prebiotic powder to continue feeding commensal bacteria to support metabolism and overall health. To consider 5-day fasting mimicking diet once a month for ongoing support as well. Patient met with forklift technician who did not recommend a CPAP machine at this time. Rather, recommended following up with dentist for mouthguard. Additionally to consider mouth taping to promote nasal breathing. Acne improved - slight acne on jawline. 12/01/2024 Acne vulgaris (ICD-10 - L70.0) Patient presents to follow-up. Patient completed a smoothie detox on her own and lost about 5 pounds. Repeated an body scan measurements which did show a reduction in total body weight. Will continue monitoring body fat percentage and skeletal mass. Discussed slight caloric deficit with sufficient protein and regular exercise and hydration. Additionally recommending prebiotic powder to continue feeding commensal bacteria to support metabolism and overall health. To consider 5-day fasting mimicking diet once a month for ongoing support as well. Patient met with forklift technician who did not recommend a CPAP machine at this time. Rather, recommended following up with dentist for mouthguard. Additionally to consider mouth taping to promote nasal breathing. Acne improved - slight acne on jawline. 12/01/2024 Obstructive sleep apnea (adult) (pediatric) (ICD-10 - G47.33) Patient presents to follow-up. Patient completed a smoothie detox on her own and lost about 5 pounds. Repeated an body scan measurements which did show a reduction in total body weight. Will continue monitoring body fat percentage and skeletal mass. Discussed slight caloric deficit with sufficient protein and regular exercise and hydration. Additionally recommending prebiotic powder to continue feeding commensal bacteria to support metabolism and overall health. To consider 5-day fasting mimicking diet once a month for ongoing support as well. Patient met with forklift technician who did not recommend a CPAP machine at this time. Rather, recommended following up with dentist for mouthguard. Additionally to consider mouth taping to promote nasal breathing. Acne improved - slight acne on jawline. 09/14/2024 Obstructive sleep apnea (adult) (pediatric) (ICD-10 - G47.33) Patient presents to follow-up. Patient reports improvement since last visit including less acne around her menstrual cycle and lasts painful and heavy menses with taking DIM. Additionally taking cortisol health care marketing manager. Feeling well but has not appreciated any significant weight loss since last visit. Has not been able to exercise to the same intensity as she did sprain her left ankle. Reviewed sleep study result which did reveal mild obstructive sleep apnea for which patient is following up with sleep medicine doctor to discuss treatment options. This may be contributing to her inability to lose weight. Obtain in office JUNAID and discussed with patient. Recommended meal plan based on findings. 07/20/2024 Body mass index [BMI] 26.0-26.9, adult (ICD-10 - Z68.26) Patient is a 28-year-old female presented clinic to [facility] for naturopathic medicine. She complains of weight gain and acne. Has had workup with with her pcp who did not find any metabolic abnormalities. Discussed diet lifestyle length with patient including focusing on protein, healthy fats and fiber. Suspicious of cortisol balance, sleep apnea and estrogen dominance. Ordering sleep study for patient and recommending cortisol health care marketing manager and DIM detox. 09/14/2024 Body mass index [BMI] 26.0-26.9, adult (ICD-10 - Z68.26) Patient presents to follow-up. Patient reports improvement since last visit including less acne around her menstrual cycle and lasts painful and heavy menses with taking DIM. Additionally taking cortisol health care marketing manager. Feeling well but has not appreciated any significant weight loss since last visit. Has not been able to exercise to the same intensity as she did sprain her left ankle. Reviewed sleep study result which did reveal mild obstructive sleep apnea for which patient is following up with sleep medicine doctor to discuss treatment options. This may be contributing to her inability to lose weight. Obtain in office JUNAID and discussed with patient. Recommended meal plan based on findings. 12/01/2024 Dietary counseling and surveillance (ICD-10 - Z71.3) Patient presents to follow-up. Patient completed a smoothie detox on her own and lost about 5 pounds. Repeated an body scan measurements which did show a reduction in total body weight. Will continue monitoring body fat percentage and skeletal mass. Discussed slight caloric deficit with sufficient protein and regular exercise and hydration. Additionally recommending prebiotic powder to continue feeding commensal bacteria to support metabolism and overall health. To consider 5-day fasting mimicking diet once a month for ongoing support as well. Patient met with forklift technician who did not recommend a CPAP machine at this time. Rather, recommended following up with dentist for mouthguard. Additionally to consider mouth taping to promote nasal breathing. Acne improved - slight acne on jawline. 07/20/2024 Other Consent obtained. License 704 provided. Time spent preparing to see the patient: 5 min Time spent during appt: 50 min Post appointment time documenting clinical information in the medical record & care coordination: 5 min Pt location: CT Physician location: [place] Total Time: 60 min Spent appointment time counseling and educating the patient on etiology, results, and management of health concerns ordering supplementations , tests, or procedures and explaining risks, benefits, and alternatives documenting clinical information in the medical record. Patient is a 28-year-old female presented clinic to [facility] for naturopathic medicine. She complains of weight gain and acne. Has had workup with with her pcp who did not find any metabolic abnormalities. Discussed diet lifestyle length with patient including focusing on protein, healthy fats and fiber. Suspicious of cortisol balance, sleep apnea and estrogen dominance. Ordering sleep study for patient and recommending cortisol health care marketing manager and DIM detox. 09/14/2024 Other Consent obtained. License 704 provided. Time spent preparing to see the patient: 5 min Time spent during appt: 28 min Post appointment time documenting clinical information in the medical record & care coordination: 2 min Pt location: CT Physician location: [place] Total Time: 35 min Spent appointment time counseling and educating the patient on etiology, results, and management of health concerns ordering supplementations , tests, or procedures and explaining risks, benefits, and alternatives documenting clinical information in the medical record.Reviewed sleep study result which did reveal mild obstructive sleep apnea for which patient is following up with sleep medicine doctor to discuss treatment options. This may be contributing to her inability to lose weight. Obtain in office JUNAID and discussed with patient. Recommended meal plan based on findings. Patient presents to follow-up. Patient reports improvement since last visit including less acne around her menstrual cycle and lasts painful and heavy menses with taking DIM. Additionally taking cortisol health care marketing manager. Feeling well but has not appreciated any significant weight loss since last visit. Has not been able to exercise to the same intensity as she did sprain her left ankle. Reviewed sleep study result which did reveal mild obstructive sleep apnea for which patient is following up with sleep medicine doctor to discuss treatment options. This may be contributing to her inability to lose weight. Obtain in office JUNAID and discussed with patient. Recommended meal plan based on findings. 12/01/2024 Other Consent obtained. License 704 provided. Time spent preparing to see the patient: 5 min Time spent during appt: 28 min Post appointment time documenting clinical information in the medical record & care coordination: 2 min Pt location: CT Physician location: [place] Total Time: 35 min Spent appointment time counseling and educating the patient on etiology, results, and management of health concerns ordering supplementations , tests, or procedures and explaining risks, benefits, and alternatives documenting clinical information in the medical record.Repeated an body scan measurements which did show a reduction in total body weight. Will continue monitoring body fat percentage and skeletal mass. Discussed slight caloric deficit with sufficient protein and regular exercise and hydration. Additionally recommending prebiotic powder to continue feeding commensal bacteria to support metabolism and overall health. To consider 5-day fasting mimicking diet once a month for ongoing support as well. Patient met with forklift technician who did not recommend a CPAP machine at this time.Rather, recommended following up with dentist for mouthguard. Additionally to consider mouth taping to promote nasal breathing. Patient presents to follow-up. Patient completed a smoothie detox on her own and lost about 5 pounds. Repeated an body scan measurements which did show a reduction in total body weight. Will continue monitoring body fat percentage and skeletal mass. Discussed slight caloric deficit with sufficient protein and regular exercise and hydration. Additionally recommending prebiotic powder to continue feeding commensal bacteria to support metabolism and overall health. To consider 5-day fasting mimicking diet once a month for ongoing support as well. Patient met with forklift technician who did not recommend a CPAP machine at this time. Rather, recommended following up with dentist for mouthguard. Additionally to consider mouth taping to promote nasal breathing. Acne improved - slight acne on jawline. Plan Of Treatment Next Appt Details Provider Name:Анна pichardo, 03/16/2025 09:00:00 AM, [address] [place] [address], [place], [place], [id number],
--- OUTSIDE RECORDS SUMMARY | 2025-01-20 08:11 | XMS_ITS ---
Author Organization [facility] Address [address] [place] [id number] Care Team Providers Care Back Roll Lathe Operator Name Role Phone Oly Guevara Primary Care Provider UnavailBurton Pina Unavailable [phone] Анна Pittman Unavailable Unavailable REASON FOR VISIT n/p Medications Medication SIG (Take, Route, Frequency, Duration) Notes Start Date End Date Status busPIRone HCl 5 MG TAKE 1 TABLET BY MOUTH THREE TIMES DAILY Oral for 30 Days Not-Taking Azithromycin 250 MG Oral for [...] EVERY MORNING External for 30 Days Active buPROPion HCl ER (XL) 150 MG Oral for 60 Days Active Methylphenidate HCl 10 MG Oral for 30 Days Active Methylphenidate HCl 10 MG TAKE 1 TABLET BY MOUTH TWICE DAILY Oral for 30 Days Active Social History Sex Assigned At : Social History Observation Description Sex Assigned At Female Section Notes: Social drinker of alcohol. Problems Problem Type SNOMED Code ICD Code Onset Dates Problem Status W/U Status Risk Notes Problem [id number] CHANTELL (obstructive sleep apnea) (G47.33) Active confirmed Problem 35397975 Anxiety (F41.9) Active confirmed Problem 986028459 Overweight (BMI 25.0-29.9) (E66.3) Active confirmed Vital Signs Temperature 98.4 degrees Fahrenheit 10/11/19 25 Blood pressure systolic 116 mm Hg 10/11/19 25 Blood pressure diastolic 58 mm Hg 025 Heart Rate 65 /min 10/11/2024 Height 5 ft 6 in in 10/11/2024 Weight 180.6 lbs 10/11/2024 BMI 29.15 kg/m2 10/11/2024 Oximetry 99 % 10/11/2024 Height-cm 167.64 cm 10/11/2024 Weight-kg 81.9 kg 10/11/2024 NECK 13.3 INCHES Encounters [facility] [place] [id number] [id number] 10/11/2024 Burton Horn CHANTELL (obstructive sleep apnea) [...] sleep apnea is more comprehensive than current night court magistrate and pulls jaw forward to open airway, [...] 25.0-29.9) (ICD-10 - E66.3) Plan Of Treatment Treatment Notes Assessment Notes CHANTELL (obstructive sleep apnea) Assessment & Plan: 1. Mild obstructive sleep apnea, AHI of 6, without cardiac comorbidities. She does have anxiety, TMJ but denies significant sleep symptoms - Discussed treatment options including CPAP, weight loss, and oral appliance therapy. Patient not intesrested in CPAP therapy currently - Explained that oral appliance for sleep apnea is more comprehensive than current night court magistrate and pulls jaw forward to open airway, [...] - Anxiety currently at a manageable level Next Appt Details Follow Up: prn, Reason: Progress Notes * Gisel STARKSDOB:1995 (29 yo F)Acc No.[id number]:10/11/2024 Progress Notes Patient:?Gisel STARKS Provider:?Burton Horn MD :1995???Age:29 Y???Sex:Female D ate:10/11/2024 Phone: Address:[address] [place] [id number] Pcp:Oly Guevara Subjective: * Chief Complaints: * ???N/p * HPI: ???HPI:? Patient has come for evaluation of sleep apnea. Sleep study done via [facility] academic affairs vice president office as they were working up her sleep symptoms and inflammation causing weight gain. Patient states that she was having more symptoms when sleep study was ordered but she feels better in terms of sleep currently. States that she was waking up more previously and felt more tired in the morning. She has been feeling better since she has changed her diet and is taking the supplements prescribed by ACCELERATOR SYSTEMS DIRECTOR.?? Home sleep test done July 2024 showed that patient slept for 600 minutes, sleep efficiency of 90%, almost half of the time spent supine. AHI as per 3% calculation was 6.1, supine AHI of 7.5. AHI as per 4% calculation was 5.8. She spent 2 minutes at oxygen saturation less than 90% and 0.3 minutes less than 85%. 1% of sleep time spent snoring. 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 * Medical History:? * Surgical History:?NA * Hospitalization/Major Diagno stic Procedure:?Ankle injury. 2023 * Family History:?Sister: diag nosed with Cancer.? * Social History:?Social drinker of alcohol. * Medications:?TakingMethylphe nidate HCl 10 MG Tablet Oral buPROPion HCl ER (XL) 150 MG Tablet Extended Release 24 Hour Oral Methylphenidate HCl 10 MG Tablet TAKE 1 TABLET BY MOUTH TWICE DAILY Oral Dapsone 7.5 % Gel APPLY TO THE AFFECTED AREA(S) EVERY MORNING External Tretinoin 0.025 % Cream Apply A SMALL AMOUNT ONCE DAILY AT BEDTIME 2-3 DAYS A WEEK, AND increase with tolerance External Tretinoin 0.025 % Cream External FLUoxetine HCl 10 MG Capsule TAKE 1 CAPSULE BY MOUTH EVERY MORNING Oral Azithromycin 250 MG Tablet Oral Rizatriptan Benzoate 5 MG Tablet TAKE 1 TABLET BY MOUTH DAILY NEEDED FOR MIGRAINE HEADACHE. MAY REPEAT DOSE 1 TIME IN 2 HOURS Oral Taking Methylphenidate HCl 10 MG Tablet Oral Taking buPROPion HCl ER (XL) 150 MG Tablet Extended Release 24 Hour Oral Taking Methylphenidate HCl 10 MG Tablet TAKE 1 TABLET BY MOUTH TWICE DAILY Oral Taking Dapsone 7.5 % Gel APPLY TO THE AFFECTED AREA(S) EVERY MORNING External Taking Tretinoin 0.025 % Cream Apply A SMALL AMOUNT ONCE DAILY AT BEDTIME 2-3 DAYS A WEEK, AND increase with tolerance External Taking Tretinoin 0.025 % Cream External Taking FLUoxetine HCl 10 MG Capsule TAKE 1 CAPSULE BY MOUTH EVERY MORNING Oral Taking Azithromycin 250 MG Tablet Oral Taking Rizatriptan Benzoate 5 MG Tablet TAKE 1 TABLET BY MOUTH DAILY NEEDED FOR MIGRAINE HEADACHE. MAY REPEAT DOSE 1 TIME IN 2 HOURS Oral Not-TakingMethylphenidate HCl ER (CD) 20 MG Capsule Extended Release TAKE 1 CAPSULE BY MOUTH EVERY MORNING ADHD Oral Azithromycin 250 MG Tablet Oral Azithromycin 250 MG Tablet Oral busPIRone HCl 5 MG Tablet TAKE 1 TABLET BY MOUTH THREE TIMES DAILY Oral Not-Taking Methylphenidate HCl ER (CD) 20 MG Capsule Extended Release TAKE 1 CAPSULE BY MOUTH EVERY MORNING ADHD Oral Not- Taking Azithromycin 250 MG Tablet Oral Not-Taking Azithromycin 250 MG Tablet Oral Not- Taking busPIRone HCl 5 MG Tablet TAKE 1 TABLET BY MOUTH THREE TIMES DAILY Oral Objective: * Vitals:?BP:116/58mm Hg, HR:6 5/min, Temp:98.4F, Oxygen sat %:99%, Wt:180.6lbs, Wt-k.9kg, Ht:5 ft 6 in, Ht-cm:167.64cm, BMI:29.15Index. NECK 13.3 INCHES. * Examination: ???General Examination: ?General appearance:?alert, well-nourished and in no acute distress.?Head:?normocephalic, atraumatic.?Throat:?class 3 malampatti airway.?Heart:?regular rate and rhythm without murmurs.?Lungs:?clear to auscultation bilaterally, with good air movement and no rales, rhonchi or wheezes.?Extremities:?no edema lower extremities.?Psych:?cooperative with exam, speech is clear and coherent.? Assessment: * Assessment: 1.?CHANTELL (obstructive sleep ap porfirio) - G47.33 (Primary)???2.?Anxiety - F41.9???3.?TMJ syndrome - M26.629???4.?Overweight (BMI 25.0-29.9) - E66.3??? Plan: * Treatment: * Procedure Codes:? * Follow Up:?prn * * Sign off status: Completed true * Provider:?Burton Horn MD Date:?2024 Generated for Maco mcelroy/Cynthia/Calrositting on:?01/20/2025 08:11 AM EDT History and Physical Notes * Examination Category Sub-Category Detail Notes Category Not es General Examination General appearance: alert, w ell-nourished and in no acute distress Head: normocephalic, atrau matic Throat: class 3 malampatti a irway Heart: regular rate and rhy thm without murmurs Lungs: clear to auscultatio n bilaterally, with good air movement and no rales, rhonchi or wheezes Extremities: no edema lower extre mities Psych: cooperative with exa m, speech is clear and coherent
--- OUTSIDE RECORDS SUMMARY | 2025-01-20 08:11 | XMS_ITS | Clinical Summary ---
Author Organization [facility] Address [address] [place] [address] Phone Care Team Providers Care Plating Inspector Name Role Phone Unavailable Primary Care Provider Unavailabl e Allergies Active Allergy Reactions Criticality Noted Date Comments Amoxicillin Anaphylaxis High 06/07/2016 Cephalosporins Itching Medium 12/04/2016 Penicillins Rash Low 02/13/2017 Sulfa Antibiotics Rash Medium 12/04/2016 Medications FLOVENT HFA 110 MCG/ACT inhaler Inhale 2 puffs 2 (two) times a day. 3 11/09/19 17 Active amphetamine-dextro amphetamine XR 20 MG 24 hr capsule Take 1 capsule (20 mg total) by mouth daily. 02/25/20 17 Active triamcinolone 0.1 % ointmentIndication s:Dyshydrosis Apply topically 3 (three) times a day as needed for irritation. 30 g 2 02/27/20 18 Active Additional Information Patient not taking.Reported on 03/01/2019 LORazepam 0.5 MG tabletIndications: Anxiety Take 2 tablets (1 mg total) by mouth every 8 (eight) hours as needed for anxiety. May repeat dose once in 20 minutes prn 30 tablet 04/13/20 20 Active FLUoxetine (PROzac) 20 MG capsuleIndications :Anxiety Take 1 capsule (20 mg total) by mouth every morning. 30 capsule 2 06/26/20 20 Active Erythromycin 2 % padsIndications:Ac ne vulgaris Apply 1 application topically 2 (two) times a day. 60 each 3 09/22/19 21 Active FLUoxetine (PROzac) 10 MG capsuleIndications :Anxiety Take 1 capsule (10 mg total) by mouth every morning. 30 capsule 2 09/27/19 21 Active rizatriptan 10 MG tabletIndications: Nonintractable headache, unspecified chronicity pattern, unspecified headache type Take 1 tablet (10 mg total) by mouth once as needed for migraine. May repeat in 2 hours if unresolved. Do not exceed 30 mg in 24 hours. 15 tablet 2 08/07/20 21 Active ondansetron ODT 8 MG disintegrating tabletIndications: Migraine without status migrainosus, not intractable, unspecified migraine type Take 1 tablet (8 mg total) by mouth every 8 (eight) hours as needed for nausea or vomiting. 10 tablet 2 08/07/20 21 Active fluticasone HFA 110 MCG/ACT inhalerIndications :Mild asthma, unspecified whether complicated, unspecified whether persistent Inhale 1 puff 2 (two) times a day. Rinse mouth with water after use, do not swallow. 1 Units 4 12/18/19 22 Active ProAir HFA 108 (90 Base) MCG/ACT inhalerIndications :Mild asthma, unspecified whether complicated, unspecified whether persistent Inhale 2 puffs every 4 (four) hours. 1 Units 1 12/18/19 22 Active drospirenone-ethin yl estradiol 3-0.02 MG per tablet Take 1 tablet by mouth once daily. 05/30/20 22 Active valACYclovir 1 g tabletIndications: Recurrent cold sores Take 2 tabs twice a day for one day as needed for cold sore outbreaks 12 tablet 1 10/05/19 23 Active Active Problems Problem Noted Date Diagnosed Date Acne vulgaris 09/22/2020 Assessment & Plan (09/22/2020 1:44 PM EST): Reviewed options for additional treatment of acne using either topical or oral antibiotics. Discussed pros and cons and together decided to start with topical antibiotics first. Warned it might take 4-6 weeks before noticing significant improvement. If at that time, Gisel is still unhappy with her skin, we can try oral antibiotics. Anxiety 02/24/2017 Overview (02/24/2017): Overview: 09/04: Takes 30 mg prozac daily. PHQ 9 < 2 today, no longer in therapy and denies current symptoms. 03/06: Mother and Gisel report more anxiety than depression and has test taking/performance anxiety and difficulty with transitions. Stable on prozac 30 mg qd, PHQ9 < 2 today. Sees psychopharmacologist every 6 months but not in counseling- does not want to do. Discussed CBT for anxiety as opposed to traditional therapy and will consider. 02/04: with mixed anxiety.Stable, no change in Prozac dosing. Continues to be followed by Dr. Fowler. PHQ-9 negative today. 02/23/17 On sertraline 40mg. Anxiety well controlled. Followed by janeth wray Depression 08/23/2014 Overview (02/24/2017): Overview: 09/04: Takes 30 mg prozac daily. PHQ 9 < 2 today, no longer in therapy and denies current symptoms. 03/06: Mother and Gisel report more anxiety than depression and has test taking/performance anxiety and difficulty with transitions. Stable on prozac 30 mg qd, PHQ9 < 2 today. Sees psychopharmacologist every 6 months but not in counseling- does not want to do. Discussed CBT for anxiety as opposed to traditional therapy and will consider. 02/04: with mixed anxiety.Stable, no change in Prozac dosing. Continues to be followed by Dr. Fowler. PHQ-9 negative today. 02/23/17: She had worsening reactive depression this school year because of peer relationships. Improved on increased prozac of 40mg qd. Still followed by janeth wray ADHD (attention deficit hype ractivity disorder), combined type 08/31/2013 Overview (02/24/2017): Overview: Started methylphenidate 18 mg-Shital Bautista 09/04: Followed by Janeth Wray MD taking Methyphenidate 36 mg daily and stable. 03/06: Same dose and followed every [address] Wray. Takes drug holiday over summer. 02/04: Off meds now for summer. Did well freshman year of college. 02/24/17: Adderall 20mg XR qd, adderall 10mg 0.5-1 tab prn homework. Followed by Janeth Wray Atopic rhinitis 02/19/2006 Overview (02/24/2017): Overview: Loratadine prn 09/04: adds Claritin and flonase for allergy seasons. 03/06: No complaints today. 02/04: quiescent Asthma 02/19/2006 Overview (02/24/2017): Overview: Now mild intermittent on no maint meds 2005 fall Only 1 episode in hot weather this summer LOts of probs winter 2007. Back on prophy meds-trial advair Symptoms improved again/intermittent. No longer on maintenance meds, albuterol prn, not using > twice weekl.y 08/31 WCC: significant exacerbation 06/01 with oral steroids and increased flovent to 110 until symptom resolution then flovent 44 x 8 weeks. No exacerbation since that time. Reviewed sick plan and restarting flovent. 09/01 WCC: no asthma meds. Will start flovent/albuterol if gets URI. 09/02 WCC: stable, Uses Flovent/albuterol with URI and if track on turf only surface seems to bother her, no other EIB. 08/04: Recommend starting Flovent 110 2 p bid to see if decreases exercise symptoms and may be able to decrease to 2 puffs qd as maintenance for EIB depending on response/ intensity of symptoms. With URI should increased to bid. Continue Albuterol pre exercise and prn. 09/04: Stable with albuterol for exercise and adds flovent with URIs. Disc parameters for control/adding ICS daily if exercise symptoms despite pre medicating with albuterol. 03/06: Albuterol pre exercise only with effect. Has not needed flovent for URIs. 02/04: Stable. ACT= 22. 02/23/17: uses albuterol pre exercise. flovent with illnesses Immunizations Immunization Administration Dates Next Due DTaP 07/31/2000, 8,01/27/1997,12/09,1996 HPV 09/11/2012,04/30/2012,02/25/2012 Hep A, Adult 02/26/2018 Hep B 05/02/1997,1996,1996 HiB 09/27/1999, 8,01/27/1997,12/09,1996 Influenza 08/12/2016, 4,08/10/2013,06/03,09/05/2011,08/29/2010,06/17/2009 ,08/09/2008,08/04/2007,08/13/2006,06/22,07/10/2004,08/01/2003 Influenza, injectable, quadr ivalent, preservative free 08/02/2019,08/16/2017 MMR 07/31/2000,10/31/1997 Meningococcal Conj (Menactra) MCV4P 08/23/2014,1 10/09/2007 Pneumococcal Polysaccharide 12/09/2003 Polio 07/31/2000, 8,1996,10/06 Td (adult) (MBL), 2 Lf tetan us toxoid, PF, adsorbed 12/09/2003 Tdap 02/24/2017,08/09/2008 Varicella 08/04/2007,07/28/1997 Family History Medical History Relation Name Comments Asthma Father Cancer (Adult Onset) Maternal Grandfather AVM Maternal Grandmother Hypertension Maternal Grandmother Thyroid disease Maternal Grandmother Allergic rhinitis Sister Asthma Sister Relation Name Status Comments Father Maternal Grandfather Maternal Grandmother Sister Social History Tobacco Use Types Packs/Day Years Used Date Smoking Tobacco: Never Smokeless Tobacco: Never Alcohol Use Standard Drinks/Week Comments Yes 4 (1 standard drink = 0.6 oz pur e alcohol) 1-2x a week Comments Unknown Sex and Gender Information Value Date Recorded Sex Assigned at Not on file Legal Sex Female 7:05 AM EST Gender Identity Not on file Sexual Orientation Not on file Last Filed Vital Signs Vital Sign Reading Time Taken Comments Blood Pressure 118/70 02/26/2018 10:33 AM EDT Pulse 82 11/08/2018 10:07 AM EST Temperature 36.6 ??C (97.8 ??F) 03/29/2020 5:08 PM ED T Respiratory Rate - - Oxygen Saturation 100% 11/08/2018 10:07 AM EST Inhaled Oxygen Concentration - - Weight 64.9 kg (143 lb) 02/26/2018 10:33 AM EDT Height 168.3 cm (5' 6.25 ) 02/26/2018 10:33 AM E DT Body Mass Index 22.91 02/26/2018 10:33 AM EDT Plan of Treatment Health Maintenance Due Date Last Done Comments Influenza Vaccines (#1) 2024 06/11/20 20, 06/10/2020, 08/02/2019, Additional history exists COVID-19 Vaccine ( season) 2024 03/02/2021, 01/26/2021 DTaP,Tdap,and Td Vaccines (8 - Td or Tdap) 02/24/2027 02/24/2017, 08/09/2008, 12/09/2003, Additional history exists Hepatitis B Vaccines Completed 05/02/1997, 1995, 1995 HIB Vaccines Completed 09/27/1999, 05/1998, 01/27/1997, Additional history exists MMR Vaccines Completed 07/31/2000, 10/31/1997 Pneumococcal Vaccine Aged Out 12/09/2003 No long er eligible based on patient's age to complete this topic Varicella Vaccines Completed 08/04/2007, 07/28/1997 HPV Vaccines Completed 09/11/2012, 05/2012, 02/25/2012 Meningococcal Vaccine Completed 08/23/2014, 008 IPV Vaccines Completed 11/09/2016, 05/2000, 02/08/1998, Additional history exists Hepatitis A Vaccines Aged Out 02/26/2018 No long er eligible based on patient's age to complete this topic Men B Vaccine Aged Out No longer elig ible based on patient's age to complete this topic Procedures * Due to [place] law, this organization might not be sharing sensitive test results. Procedure Name Priority Date/Time Associated Diagnosis Comments CHLAMYDIA AND GONORRHEA, AMPLIFIED Routine 02/24/2017 12:00 AM EDT from Last 3 Months or Most Recently Relevant to Health Maintenance Results * Due to [place] law, this organization might not be sharing sensitive test results. * Chlamydia and Gonorrhoea, Amplified (02/24/2017 12:00 AM EDT) Chlamydia trachomatis RNA, TMA NOT DETECTED NOT DETECTED [employer] [facility] Neisseria gonorrhoeae, PIA NOT DETECTED NOT DETECTED [employer] [facility] Comment [employer] [facility] Comment: This test was performed using the APTIMA COMBO2 Assay ([employer] The analytical performance characteristics of this assay, when used to test [facility] specimens have been determined by [email or web address]. ?? 02/24/2017 02/25/2017 7:3 2 AM EDT Narrative [facility] - 02/25/2017 12:49 PM EDT FASTING: UNKNOWN Resulting Agency Comment Performing Organization Information: ?Site ID: [id number] ?Name: [email or web address] ?Address: [address] [place] [address], [place] [address] ?Director: Yessenia Dotson us Mandi Marte MD LAB MICROBIOLOGY - GENERAL [place] Final Result [facility] from Last 3 Months or Most Recently Relevant to Health Maintenance
--- OUTSIDE RECORDS SUMMARY | 2025-01-20 08:11 | XMS_ITS | Encounter Summary ---
Author Organization [facility] Address [address] [place] [phone] Phone Care Team Providers Care Barrel Lapper Name Role Phone Unavailable Primary Care Provider Unavailabl e Reason for Visit * Reason Onset Date Comments Med Refill 05/18/2019 Encounter Details Date Type Department Care Team ([facility] st Contact Info) Description 05/18/2019 Refill [facility] [address] [facility] [address] [place] [address] Mandi Marte MD [address] [facility] [address] [place] [address] Uses control Social History Tobacco Use Types Packs/Day Years [...] on file Sexual Orientation Not on file documented as of this encounter Miscellaneous Notes * Telephone Encounter - Louann Umana [place] - 05/19/2019 11:26 AM EDT Ok to fill documented in this encounter Plan of Treatment Not on file documented as of this encounter Visit Diagnoses Diagnosis Uses control documented in this encounter
--- OUTSIDE RECORDS SUMMARY | 2025-01-20 08:12 | XMS_ITS ---
Author Organization [address] [phone] Care Team Providers Care Rack Loader Name Role Phone Zain Анна Unavailable [phone] Allergies Allergen (clinical drug ingredient) Drug/Non Drug Allergy documented on EMR Reaction Allergy Type Onset Date Status amoxicillin Amoxicillin anaphylaxis Drug Allergy A ctive Substance with sulfonamide structure and antibacterial mechanism of action (substance) Sulfa Antibiotics anaphylaxis Drug Allergy Active REASON FOR VISIT weight/check in Medications Medication SIG (Take, Route, Frequency, Duration) Notes Start Date End Date Status buPROPion HCl ER (XL) 150 MG TAKE 1 TABL ET BY MOUTH EVERY MORNING Oral for 30 Days Active Methylphenidate HCl ER (CD) 20 MG Oral for 30 Days Active Vital Signs Respiratory Rate 16 /min 12/01/2024 Height 67 in 12/01/2024 Weight 176 lbs 12/01/2024 BMI 27.56 kg/m2 12/01/2024 Encounters Encounter Location Date Provider Diagnosis [address] [phone] 12/01/2024 Анна Pittman Overweight E66.3 ; Acne vulgaris L70.0 ; Obstructive sleep apnea (adult) (pediatric) G47.33 and Dietary counseling and surveillance Z71.3 Assessments Encounter Date Diagnosis (ICD Code) Assessment Notes Treatment Notes Treatment Clinical Notes Section Notes 12/01/2024 Overweight (ICD-10 - E66.3) Patient presents [...] ongoing support as well. Patient met with sewer pipe layer who did not recommend a CPAP machine [...] ongoing support as well. Patient met with sewer pipe layer who did not recommend a CPAP machine [...] ongoing support as well. Patient met with sewer pipe layer who did not recommend a CPAP machine at this time. Rather, recommended following up with dentist for mouthguard. Additionally to consider mouth taping to promote nasal breathing. Acne improved - slight acne on jawline. 12/01/2024 Dietary counseling and surveillance (ICD-10 - [...] ongoing support as well. Patient met with sewer pipe layer who did not recommend a CPAP machine at this time. Rather, recommended following up with dentist for mouthguard. Additionally to consider mouth taping to promote nasal breathing. Acne improved - slight acne on jawline. 12/01/2024 Other Consent obtained. License 704 provided. [...] ongoing support as well. Patient met with sewer pipe layer who did not recommend a CPAP machine [...] ongoing support as well. Patient met with sewer pipe layer who did not recommend a CPAP machine at this time. Rather, recommended following up with dentist for mouthguard. Additionally to consider mouth taping to promote nasal breathing. Acne improved - slight acne on jawline. Plan Of Treatment Next Appt Details Provider Name:Анна pichardo, 03/16/2025 09:00:00 AM, [address] [place] [address], [phone], Progress Notes * Drew ESPINOZA:1995 (29 yo F)Acc No.[id number]:12/01/2024 Progress Notes Patient:?Gisel ESPINOZA Provider:?Анна Pittman ND :1995???Age:29 Y???Sex:Female D ate:12/01/2024 Address:[address] [place], [place] [id number] Subjective: * Chief Complaints: * ???Weight/check in * HPI: ???HPI:? CC1//Weight gain/Mild CHANTELL 12/01/24 - gaining muscle/losing inches - completed smoothie detox for 1 week? - felt more energized - adding some foods back in bothered stomach - f/u with sewer pipe layer - did not recommend CPAP? - going to ask dentist about mouthgard? -- 09/14/24 - sleep study revealed mild CHANTELL - following up with Dr. Horn 10/11 - recently sprained L ankle/hasn't been running - light workouts - eating has been good - using water filter - glass tupperware - taking chewable probiotic/cortisol manager financial systems as well --- 07/20/24 - currently 175 lb (wants to lose 25-30 lbs)? - Has a PCP in [place]? 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 - since finishing college has gained 20-30 lbs? - had 'full workup with PCP' - sister has thyroid CA (got cleared for this)? - got off control 1.5 years ago (felt better coming off this) - monthly regular period, lasts 5-6 days (moderate flow)? - PMS sxs include acne - also taking bupropion? - carries weight in legs - other sxs: low libido? -- CC2//Acne 12/01/24 - skin doing well - slight acne on jaw - went to logistics support? 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 - was worse - sees a logistics support - uses tretinoin? - worse with stress. ???Care Team:? [place], Dr. Анна Pittman. ???Diet/Exercise:? Diet: Limits bread B: protein yogurt,? L: roast sweet potato, chicken thigh, 1/4 cup of rice D: chix, vegetable, rice, soup Snacks: minimal? Water: 60-80 oz/day? Caffeine: 1-2 coffee?cups /day Alcohol: few times/month - notices beer causes facial swelling Tobacco/nicotine: none? Recreational drugs: none? Exercise: 4-5x/week - strength training with weights, speed walking on incline (clothes fitting better). ???Lifestyle:? Lifestyle: Relationship status: Boyfriend, no children? 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 Sleep: no issues falling/asleep - 7-8 hours (bedtime is 9 pm wakes at 5am) /snores? Energy: low. ???Supplements:?1. Audi vitamin D3 1000 IU? 2. Magnesium 250 mg. ???Digestion:? 1-2 BMs/day Occasional bloating in luteal phase Denies blood, mucus and undigested food in stools. * ROS:?General/Constitutional:?Patient denies?chills, fever, lightheadedness.?ENT:?Patient denies?decreased hearing, decreased sense of smell, difficulty swallowing, ear pain.?Respiratory:?Patient denies?chest pain, sputum production, wheezing, cough.?Cardiovascular:?Patient denies?dyspnea on exertion, fluid accumulation in the legs, palpitations.?Gastrointestinal:?Patient denies?rectal bleeding, change in bowel habits.?Hematology:?Patient denies?dizziness, easy bruising, weakness.?Neurologic:?Patient denies?balance difficulty, difficulty speaking, loss of strength.? * Medical History:? 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 * Surgical History:?Denies Pas t Surgical History * Hospitalization/Major Diagno stic Procedure:?Denies Past Hospitalization * Family History:? Mother: Endometriosis MGF: CRC Father: healthy? Sister: Hypothyroidism. * Medications:?TakingMethylphe nidate HCl ER (CD) 20 MG Capsule Extended Release Oral buPROPion HCl ER (XL) 150 MG Tablet Extended Release 24 Hour TAKE 1 TABLET BY MOUTH EVERY MORNING Oral Medication List reviewed and reconciled with the patientTaking Methylphenidate HCl ER (CD) 20 MG Capsule Extended Release Oral Taking buPROPion HCl ER (XL) 150 MG Tablet Extended Release 24 Hour TAKE 1 TABLET BY MOUTH EVERY MORNING Oral Medication List reviewed and reconciled with the patient * Allergies:?Amoxicillin: anap hylaxisSulfa Antibiotics: anaphylaxis Objective: * Vitals:?Ht: 67 in, Wt:176lbs , BMI:27.56Index, RR:16/min. * Examination: ???General Examination: ?GENERAL APPEARANCE:?alert, well hydrated, in no distress .?HEAD:?normocephalic, atraumatic.?EYES:?pupils equal, round, reactive to light and accommodation, conjunctiva clear.?EARS:?normal.?NOSE:?external nose- no gross deformities..?NECK/THYROID:?neck supple, full range of motion, trachea midline.?SKIN:?normal, good turgor, no rashes, no suspicious lesions, normal hair distribution, warm and dry.?LUNGS:?no wheezes, rales, rhonchi.?CHEST:?no gross rib deformity, normal shape and expansion.?ABDOMEN:?nondistended.?BACK:?full range of motion, normal.?NEUROLOGIC:?cognitive exam grossly normal, cooperative with exam, cranial nerves 2-12 grossly intact, gait normal.?PSYCH:?alert, oriented.? Assessment: * Assessment: 1.?Overweight - E66.3 (Prima ry)???2.?Acne vulgaris - L70.0???3.?Obstructive sleep apnea (adult) (pediatric) - G47.33???4.?Dietary counseling and surveillance - Z71.3??? Patient presents to follow-u p. Patient completed a smoothie detox on her own and lost about 5 pounds. Repeated an body scan measurements which did show a reduction in total body weight. Will continue monitoring body fat percentage and skeletal mass. Discussed slight caloric deficit?with sufficient protein and regular exercise and hydration. Additionally recommending prebiotic powder to continue feeding commensal bacteria to support metabolism and overall health. To consider 5-day fasting mimicking diet once a month for ongoing support as well. Patient met with sewer pipe layer who did not recommend a CPAP machine at this time. Rather, recommended following up with dentist for mouthguard. Additionally to consider mouth taping to promote nasal breathing. Acne improved - slight acne on jawline. Plan: * Treatment: * Procedure Codes:? * Preventive Medicine:?Supplements: 1. Cortisol Massage Therapist: 2 caps at bedtime to support cortisl balance (Nightly grounding exercise - meditation, yoga/stretch, journal, self reflection. Don't skip out on this!) 2. DIM detox: 2 caps daily to support suspected estrogen dominance Avoiding Enviromental Estrogens endocrine disruptors -Think Dirty (rita)- plug in beauty products or household products to see how clean they are -Stay away from plastics, non-stick pans- drink out of glass or invest in water filter ([employer] water filter), cook out of stainless steel or cast iron pans to avoid non-stick coating -Try to eat organic where possible (clean 15 dirty dozen) - avoid strong scents, fragrances, chemicals 3. Eat a variety of different fruits/vegetables and whole grains - consider Polyprebiotic Powder: 1 scoop/day (can ease into this to avoid digestive upset) 4. Paleo Protein Powder (21 grams): 1 scoop daily Diet recommendations: 1. Stay under 2,000 calories/day (continue using Myfitness Aim for 150 grams of protein daily Consider 5 day fasting mimicking day once/month (I recommend doing this first half of menstrual cycle and not during luteal phase or right before menses) *see handout 2. Blood sugar control tips: No eating after 7-8 PM! Order of eating matters- start with veggies/fiber, protein and healthy fats next, starches/sugar last (ideally avoid sugar) Start your day/break your fast with protein, healthy fats, fiber Movement after meals- 10 min walk, dancing in the living room, etc. Never eat carbs/starch by itself- can eat this after a meal or pair with protein, fat, or fiber- i.e. no fruit on an empty stomach by itself- would be better if paired with nuts/seeds, almond butter, etc. 3. Continue exercise regimen 4. Hydration - 60-80 oz of water/day Labs/Testing/Other: 1. mouth taping during sleep to avoid mouth breathing to support the oral microbiome, sleep quality, and more - mouth tape can be purchased on [employer], [place] [email or web address] [email or web address]-yasf-bhipvn-sleep/ [email or web address]/ Future: Microbiome stool test? toxin test?. * * Sign off status: Completed true * Provider:Tip Pittman ND Date:? Generated for Maco mcelroy/Cynthia/eTransmitting on:?01/20/2025 08:12 AM EDT History and Physical Notes * HPI (History of Present Illness) Category Sub-Category Detail Notes Category Not es HPI CC1//Weight gain/Mild CHANTELL 12/01/24 - gaining muscle/losing inches - completed smoothie detox for 1 week - felt more energized - adding some foods back in bothered stomach - f/u with sewer pipe layer - did not recommend CPAP - going to ask dentist about mouthgard -- 09/14/24 - sleep study revealed mild CHANTELL - following up with Dr. 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 - has tried isogenix, GoLow, intermittent fasting - since finishing college has gained 20-30 lbs - had 'full workup with PCP' - sister has thyroid CA (got cleared for this) - got off control 1.5 years ago (felt better coming off this) - monthly regular period, lasts 5-6 days (moderate flow) - PMS sxs include acne - also taking bupropion - carries weight in legs - other sxs: low libido -- CC2//Acne 12/01/24 - skin doing well - slight acne on jaw - went to logistics support -- 09/14/24 - Taking DIM - noticing less breakouts around menses - 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 Audi vitamin D3 1000 IU 2. 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 Deena Pittman Diet/Exercise Diet: Limits bread B: protein yogurt, L: roast sweet potato, chicken thigh, 1/4 cup of rice D: chix, vegetable, rice, soup Snacks: minimal Water: 60-80 oz/day Caffeine: 1-2 coffee cups /day Alcohol: few times/month - notices beer causes facial swelling Tobacco/nicotine: none Recreational drugs: none Exercise: 4-5x/week - strength training with weights, speed walking on incline (clothes fitting better) Examination Category Sub-Category Detail Notes Category Not es General Examination GENERAL APPEARANCE: alert, w ell hydrated, in no distress HEAD: normocephalic, atrau matic EYES: pupils equal, round, reactive to light and accommodation, conjunctiva clear EARS: normal NOSE: external nose- no gr oss deformities. NECK/THYROID: neck supple, full ra nge of motion, trachea midline CHEST: no gross rib deformi ty, normal shape and expansion LUNGS: no wheezes, rales, r honchi ABDOMEN: nondistended NEUROLOGIC: cognitive exam gross ly normal, cooperative with exam, cranial nerves 2-12 grossly intact, gait normal SKIN: normal, good turgor, no rashes, no suspicious lesions, normal hair distribution, warm and dry BACK: full range of motion , normal PSYCH: alert, oriented
--- OUTSIDE RECORDS SUMMARY | 2025-01-20 08:12 | XMS_ITS ---
Author Organization [address] [phone] Care Team Providers Care Aegis Operations Specialist Name Role Phone Анна Pittman Unavailable [phone] Allergies Allergen (clinical drug ingredient) Drug/Non Drug Allergy documented on EMR Reaction Allergy Type Onset Date Status amoxicillin Amoxicillin anaphylaxis Drug Allergy A ctive Substance with sulfonamide structure and antibacterial mechanism of action (substance) Sulfa Antibiotics anaphylaxis Drug Allergy Active REASON FOR VISIT [facility] Medications Medication SIG (Take, Route, Frequency, Duration) Notes Start Date End Date Status buPROPion HCl ER (XL) 150 MG TAKE 1 TABL ET BY MOUTH EVERY MORNING Oral for 30 Days Active Methylphenidate HCl ER (CD) 20 MG Oral for 30 Days Active Vital Signs Respiratory Rate 16 /min 09/14/2024 Height 67 in 09/14/2024 Weight 180 lbs 09/14/2024 BMI 28.19 kg/m2 09/14/2024 Encounters Encounter Location Date Provider Diagnosis [address] [id number] 09/14/2024 Анна Pittman Overweight E66.3 ; Acne vulgaris L70.0 ; Obstructive sleep apnea (adult) (pediatric) G47.33 and Body mass index [BMI] 26.0-26.9, adult Z68.26 Assessments Encounter Date Diagnosis (ICD Code) Assessment Notes Treatment Notes Treatment Clinical Notes Section Notes 09/14/2024 Overweight (ICD-10 - E66.3) Patient presents to follow-up. Patient reports improvement since last visit including less acne around her menstrual cycle and lasts painful and heavy menses with taking DIM. Additionally taking cortisol wind plant manager. Feeling well but has not appreciated [...] menses with taking DIM. Additionally taking cortisol wind plant manager. Feeling well but has not appreciated [...] Recommended meal plan based on findings. 09/14/2024 Obstructive sleep apnea (adult) (pediatric) (ICD-10 - G47.33) Patient presents to follow-up. Patient reports improvement since last visit including less acne around her menstrual cycle and lasts painful and heavy menses with taking DIM. Additionally taking cortisol wind plant manager. Feeling well but has not appreciated [...] Recommended meal plan based on findings. 09/14/2024 Body mass index [BMI] 26.0-26.9, adult (ICD-10 - Z68.26) Patient presents to follow-up. Patient reports improvement since last visit including less acne around her menstrual cycle and lasts painful and heavy menses with taking DIM. Additionally taking cortisol wind plant manager. Feeling well but has not appreciated [...] Recommended meal plan based on findings. 09/14/2024 Other Consent obtained. License 704 provided. Time spent preparing to see the patient: 5 min Time spent during appt: 28 min Post appointment time documenting clinical information in the medical record & care coordination: 2 min Pt location: [place] Physician location: [place] Total Time: 35 min Spent appointment time counseling and educating the patient on etiology, results, and management of health concerns ordering supplementation s, tests, or procedures and explaining risks, benefits, [...] menses with taking DIM. Additionally taking cortisol wind plant manager. Feeling well but has not appreciated [...] patient. Recommended meal plan based on findings. Plan Of Treatment Next Appt Details Provider Name:Анна pichardo, 03/16/2025 09:00:00 AM, [address] [place] [address], [phone], Progress Notes * Gisel STARKSDOB:1995 (29 yo F)Acc No.[id number]:09/14/2024 Progress Notes Patient:?Gisel SATRKS Provider:?Анна Pittman ND :1995???Age:29 Y???Sex:Female D ate:09/14/2024 Address:[address] [place], [place] [id number] Subjective: * Chief Complaints: * ???[facility] * HPI: ???HPI:? CC1//Weight gain/Mild CHANTELL 09/14/24 - sleep study revealed mild CHANTELL - following up with Dr. Horn 10/11 - recently sprained L ankle/hasn't been running - light workouts - eating has been good - using water filter - glass tupperware - taking chewable probiotic/cortisol wind plant manager as well --- 07/20/24 - currently 175 lb (wants to lose 25-30 lbs)? - Has a PCP in [place]? 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 [...] - other sxs: low libido? 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 - was worse - sees a yarn comber - uses tretinoin? - worse with stress. [...] loss of strength.? * Medical History:? 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 * Surgical History:?Denies Pas [...] the patient * Allergies:?Amoxicillin: anap hylaxisSulfa Antibiotics: anaphylaxisno[Allergies Verified] Objective: * Vitals:?Ht: 67 in, Wt:180lbs , BMI:28.19Index, RR:16/min. * Examination: ???General Examination: ?GENERAL APPEARANCE:?alert, [...] - L70.0???3.?Obstructive sleep apnea (adult) (pediatric) - G47.33???4.?Body mass index [BMI] 26.0-26.9, adult - Z68.26??? Patient presents to follow-u p. Patient reports improvement since last visit including less acne around her menstrual cycle and lasts painful and heavy menses with taking DIM. Additionally taking cortisol wind plant manager. Feeling well but has not appreciated [...] patient. Recommended meal plan based on findings. Plan: * Treatment: * Procedure Codes:? * Preventive Medicine:?Supplements: 1. Cortisol Sports Physical Therapist: 2 caps at bedtime to support [...] of glass or invest in water filter ([employer] water filter), cook out of stainless steel or cast iron pans to avoid non-stick coating -Try to eat organic where possible (clean 15 dirty dozen) - avoid strong scents, fragrances, chemicals 3. Biogaia Gastrus Probiotic: 1 chewable twice daily L reuteri yogurt - half cup daily (for higher concentration) Links for probiotic and recipe below: https://CribFrog/product/erbjlht-bfclrrs-zpdemrk/ https://Crib[employer]rog//pxg-iw-ewja-f-kfmdvya-xwxjtj-step-by-s tep/ 4. Paleo Protein Powder (21 grams): 1 scoop daily Diet recommendations: 1. Focus on protein, fiber and eating a diverse diet of fruit/veg 2. Blood sugar control tips: No eating [...] 3. Continue exercise regimen 4. Hydration - half body weight in oz of water daily Labs/Testing/Other: 1. [facility] 2. Home Sleep study to evaluate for obstructive sleep apnea Sign up, payment, and schedule at all once. [email or web address] Future: Microbiome stool test? toxin test?. * * Sign off status: Completed true * Provider:?Анна Pittman ND Date:? Generated for Maco mcelroy/Cynthia/eTransmitting on:?01/20/2025 08:11 AM EDT History and Physical Notes * HPI (History of Present Illness) Category Sub-Category Detail Notes Category Not es HPI CC1//Weight gain/Mild CHANTELL 09/14/24 - sleep study revealed mild CHANTELL - following up with Dr. 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
[2025-01-20 08:13] VITALS: BP 106/64; PULSE 81; RESP 16; O2SAT 97; BMI 28.7
--- OUTSIDE RECORDS SUMMARY | 2025-01-20 08:13 | XMS_ITS | Data Portability ---
Author Organization [facility] Gato [facility]CE[facility] Address [address] [place] [address] Care Team Providers Care Relations Manager Name Role Phone ITZ ASHLEY Referring Provider [phone] Assessment Encounter Date Assessment Date Assessment LastModified by Organization Details LastModified Time 02/26/2016 02/26/2016 The patient will be seen on an as needed basis. Orthosis: is in stock & delivered today.? ? ? Orthotic Goals: Choose all that apply Yes? Reduce Pain in ankle complex Yes? Limit Motion of ankle complex Yes? Promote Healing of injured ligaments and tendons Yes? Improve Stability of ankle complex Pt was seen as a walk-in for a tall pneumatic walking boot per MD request to treat a right ankle sprain S/P soccer injury.? ? ? Pt donned boot and reported immediate ankle stability and decreased ankle pain.? ? ? Boot should aid to prevent further ankle trauma and allow structures to strengthen and heal.? ? ? Pt to F/u PRN. gomara Not available 02/26/2016 09:53:30 04/01/2016 04/01/2016 Pt was seen for a short walking boot as chidi tall walking boot wasnt holding Pt's ankle/foot stable within the boot.? ? ? Pt also reported that the air pockets were not holding the air and she had to re-pump every 10 mins.? ? ? Pt given a med/short boot under warranty exchange.? ? ? Pt reported satisfaction the appt and plan. gomara Not available 04/01/2016 15:55:39 04/15/2016 04/15/2016 The patient will be seen on an as needed basis. Orthosis: is in stock & delivered today.? ? ? Pt was seen for eval/fit of a? ? ?R ASO S/P R ankle sprain per MD request.? ? ? Pt presented wearing an aircast boot that has been DC for the lace-up.? ? ? R. ASO should? ? ?aid to? ? ?stabilize the right ankle? ? ?in all 3 planes to prevent further ankle trauma while Pt is walking.? ? ? Pt tolerated appt. well and was able to burak/doff ASO indep.?Pt liat F/U PRN. ? ? ? Orthotic Goals: Choose all that apply Yes? Provide Support Yes? Reduce Pain Yes? Limit Motion Yes? Promote Healing Yes? Improve Stability Yes? Provide Support & Compression Yes? Decrease Swelling gomara Not available 04/16/2016 08:28:27 Plan of Treatment Reminders Order Date Submit Date Provider Last Modified By Organization Details Last Modified Time Details Appointments None record ed. Lab None record ed. Referral None record ed. Procedures None record ed. Surgeries None record ed. Imaging None record ed. Medication Orders None record ed. Patient TargetsNo targets recorded. Patient Instructions Encounter Date Encounter Id Patient Instructions Last Modified By Organization Details Last Modified Time 02/26/2016 [id number] wear socks and change them regularly to improve hygiene gomara Not available 02/26/2016 09:53:30 {{Patient* Careg i sergio Patient & caregiver}} {{was* was not were were not}} provided with {{oral written or al & written*}} instructions regarding proper donning, doffing, wear, care and maintenance. {{Patient* Caregi sergio Patient & caregiver}} {{did* did not}} demonstrate that they were able to properly don and doff the orthosis. {{Patient* Caregi sergio Patient & caregiver}} {{was* was not were were not}} provided with my card and instructed to call if any questions or problems arise. gomara Not available 02/26/2016 09:53:30 04/01/2016 [id number] return PRN gomara Not available 03/22 15:55:40 {{Patient* Careg i sergio Patient & caregiver}} {{was* was not were were not}} provided with {{oral written or al & written*}} instructions regarding proper donning, doffing, wear, care and maintenance. {{Patient* Caregi sergio Patient & caregiver}} {{did* did not}} demonstrate that they were able to properly don and doff the orthosis. {{Patient* Caregi sergio Patient & caregiver}} {{was* was not were were not}} provided with my card and instructed to call if any questions or problems arise. gomara Not available 04/01/2016 15:55:39 04/15/2016 [id number] always wear shoe s with ASO. gomara Not available 04/16/2016 08:28:27 {{Patient* Careg i sergio Patient & caregiver}} {{was* was not were were not}} provided with {{oral written or al & written*}} instructions regarding proper donning, doffing, wear, care and maintenance. {{Patient* Caregi sergio Patient & caregiver}} {{did* did not}} demonstrate that they were able to properly don and doff the orthosis. {{Patient* Caregi sergio Patient & caregiver}} {{was* was not were were not}} provided with my card and instructed to call if any questions or problems arise. gomara Not available 04/16/2016 08:28:27 Reason for Referral None Reported. Problems Name Problem SNOMED Code Status Onset Date Resolution Date Notes Provider Name and Address Organization Details Recorded Time Sprain of ankle 75329728 Active Mary Wilson, F[facility] [address], [place], [address] , [facility] 04/16/2016 08:28:26 Problem Notes None recorded. Procedures Surgical History Date Name Laterality Status Provider Name and Address Organization Details Recorded Time 6 OTS Procedures completed Mary Wilson [address], [place], [address], [facility] 04/16/2016 08:28:27 6 OTS Procedures completed Mary Wilson [facility] [employer] [address], [place], [address], [facility] [place] [facility] 04/01/2016 15:55:40 6 OTS Procedures completed CPO [address], [place], [address], [facility] 02/26/2016 09:53:30 Imaging Results None recorded. Procedure Notes None recorded. Medical Equipment None Reported. Vitals Date Recorded Body height Body weight Provider Name and Address Organization Details Last Updated DateTime 02/26/2016 170.18 cm 04529.9318 g Mary Wilson CPO [address], [place], [address] 02/26/2016 09:53:30 Social History None recorded. Functional Status None recorded. Mental Status None recorded. Family History Nothing Reported. Medical History No medical history recorded. Gynecological HistoryNo gynecological history recorded. Obstetrics History GPAL:G 0 P 0 0 0 0 Past Encounters Encounter ID Performer Location Encounter Start Date Encounter Closed Date Diagnosis/Indication Diagnosis SNOMED-CT Code Diagnosis ICD10 Code Diagnosis Note [id number] Mary [facility] [address] [place] [address] 02/26/2016 09:44:38 02/27/2016 09:14:08 Sprain of ankle 67191723 S93.421D [id number] Mary Cherry[facility]iaMAXIMILIANOO [address] [place] [address] 04/01/2016 15:27:30 04/02/2016 13:38:34 Sprain of ankle 46077539 S93.421D [id number] Mary CherryMAXIMILIANO ArellanoO [address] [place] [address] 04/15/2016 16:04:59 04/16/2016 12:47:26 Sprain of ankle 82703715 S93.421D Health Concerns Section Related Observation LastModified by Organization Detai ls LastModified Time None Recorded Concern Status LastModified by Organization Details LastModified Time None Recorded Advance Directives Directive None Recorded Payers Encounter Date Sequence Insurance Name Policy Number Policy Street Covered Member ID Street Member ID Guarantor Name 02/26/2016 1 [facility] [place] [id number] Janeth Starks [id number] Janeth Starks 04/01/2016 1 [facility]: [place] [id number] Janeth Starks [id number] Janeth Starks 04/15/2016 1 [facility] [place] [id number] Janeth Starks [id number] Janeth Starks Notes Date Note Type Note Provider Name and Address Organization Details Recorded Time 02/26/2016 text/html Patient Accompan ied ByReported bypatient.patient accompaniedby motherTUCKER Generic HPIReported bypatient.Previous surgeriesnone reported Injuriesdate of injury 5 days ago [address], [place], [address], [facility] 02/26/2016 09:53:42 04/01/2016 text/html Patient Accompan ied ByReported bypatient.patient accompaniedby parentsOTS Generic HPIReported bypatient.Notes:see initial eval CPO [address], [place], [address], [facility] 04/01/2016 15:55:49 04/15/2016 text/html Patient Accompan ied ByReported bypatient.patient accompaniedby mother [address]PO [address], [place], [address], [facility] 04/16/2016 08:28:40 OBGyn Episode No OBEpisode recorded.
--- OUTSIDE RECORDS SUMMARY | 2025-01-20 08:13 | XMS_ITS ---
Author Name [facility] Organization Unknown History of Medication Use Medication Directions Dispensed Refills Start Date End Date Stat us buPROPion HCl ER (XL) 150 MG buPROPion HCl ER (XL) 150 MG active Methylphenidate HCl ER (CD) 20 MG Methylphenidate HCl ER (CD) 20 MG active Allergies Allergen Reaction Severity Comment Documented Date Source Statu s AMOXICILLIN anaphylaxis [facility] SUBSTANCE WITH SULFONAMIDE STRUCTURE AND ANTIBACTERIAL MECHANISM OF ACTION (SUBSTANCE) anaphylaxis [facility] Encounters Encounter Type Encounter Reason Primary Diagnosis Location Date Ambulatory Collaborative N [facility] 12/01/2024 [facility] 09/14/2024 [facility] 09/06/2024 Amb[facility] 08/31/2024 Ambulatory Collabor[facility] 07/20/2024 Ambulatory Collaborative [facility] 05/17/2024 Care Team Organization Name Specialty Phone Email Start Date End Da [facility] Callie Shah Primary [facility] 05/19/2024
--- OUTSIDE RECORDS SUMMARY | 2025-01-20 08:13 | XMS_ITS ---
Author Organization [facility] Address [address] [place] [id number] Care Team Providers Care Special Investigator Name Role Phone Анна Pittman Unavailable [phone] REASON FOR VISIT call back #09/07 Encounters Encounter Location Date Provider Diagnosis [address] [id number] 09/06/2024 Анна Pittman Plan Of Treatment Next Appt Details Provider Name:Анна pichardo, 03/16/2025 09:00:00 AM, [address] [place] [address], [phone], Progress Notes * Gisel ESPINOZADOB:1995 (29 yo F)Acc No.[id number]:09/06/2024 Patient:?Gisel ESPINOZA :1995???Age:29 Y???Sex:Female Address: [place], [address] * true * Date:? Generated for Printi ng/Fajuan miguelg/eTransmitting on:?01/20/2025 08:12 AM EDT
== END 2025-01-20 08:33 | disposition home or self-care (01) ==
LOC: HO.HMCFM 08:06
PROVIDERS: PCP Physician Assistant; Visit Provider Physician Assistant
DX: Z00.00 Encounter for general adult medical examination without abnormal findings (principal); F34.1 Dysthymic disorder; F41.1 Generalized anxiety disorder; F90.9 Attention-deficit hyperactivity disorder, unspecified type

== ENCOUNTER → 2025-01-20 08:05 | Outpatient (BNVA) | payer BC, SELFPAY | PROVIDERS: PCP Physician Assistant; Visit Provider Physician Assistant | DX: Z00.00 Encounter for general adult medical examination without abnormal findings (principal); F34.1 Dysthymic disorder; F41.1 Generalized anxiety disorder; F90.9 Attention-deficit hyperactivity disorder, unspecified type | CPT/HCPCS: 96127 ==

== ENCOUNTER 2025-02-22 07:33 | Outpatient (REF) | payer BC, SELFPAY ==
--- OUTSIDE RECORDS SUMMARY | 2025-02-22 07:35 | XMS_ITS | Data Portability ---
Author Organization [facility] [employer] Address [address] [facility] [address] [place] [address] Care Team Providers Care Pet Caretaker Name Role Phone TREVOREDEL DesirISE Primary Care Provider Assessment Encounter Date Assessment Date Assessment LastModified [...] or more view - fa3 2017 018 [facility] (Imaging Center), [address], [address], [place], [address], 8 06:58:58 XR, foot, 3 or more view - fa 6 [address] (Imaging Center), [address], [address], [place], [address], 8 15:15:00 Medication Orders None recorde d. Patient TargetsNo targets recorded. Patient Instructions Encounter Date Encounter Id Patient Instructions Last Modified By Organization Details Last Modified Time 02/23/2018 [id number] Three views of the right foot including AP, lateral, oblique were obtained weight-bearing. These show a healing 5th metatarsal neck fracture in appropriate alignment. Soft tissues appear to be unremarkable. No significant arthritis identified. [email or web address] Not available 02/23/2018 11:12:10 08/12/2018 [id number] Four views of the right foot including AP, lateral oblique and sesamoid view were obtained today. These show lucency within the fibular sesamoid but no significant arthritis. No obvious fracture is identified. Soft tissues are unremarkable no other fractures are identified. [email or web address] Not available 08/12/2018 15:40:42 03/10/2019 [id number] Ultrasound reviewed. This shows a fluid-filled cystic structure along the medial midfoot. [email or web address] Not available 03/10/2019 09:47:15 08/18/2019 [id number] MRI from April of this year was [...] dure: 2019 Medic al Recor d #: [id number] Accou nt #:[id number] Acces elaina d: 2019 /A ge/Se [...] in casse tte A1 . J0. / Carey Bryant n, Surg. Path. Asst. Not Available [facility] ([facility]) [address] [facility] [address], [place], [address], 11/11/2019 18:05:26 02/24/20 18 02/23/2018 XR, foot, 3 or more view [email or web address] ?Encry pted=s hAaTro YD8dLq bEUv6g %2BXZw aYqtaq 0bqfl% 2Fg9IQ a4ajBk vP9nXo QUaueC m3YtLR FvZlgJ JJ8mAn HZtai3 4f5563 AC0KsY nyMVaC gKicnq c0P [facility] (Imaging Center) [address] [facility], [place], [address], 02/23/2018 11:10:10 08/12/20 18 08/12/2018 XR, foot, 3 or more view [email or web address] ?Encry pted=s hAaTro YD8dLq bEUv6g %2BXZw aYqtaq 0bqfl% 2Fg9IQ a4ajBk vP9nXo QUaueC m3YtLR FvZlgJ JJ8mAn HZtai3 9h1987 AC0Kvb HmFWKK gKicnq c0P [facility] (Imaging Center) [address], [place], [address], 08/12/2018 08:13:42 03/10/20 19 US, extre elizabeth, nonva scula r, limit ed No observ ation record ed. [email or web address] Not Available 2018 09:13:29 05/05/2005/04/2019 MRI, ankle , w/o contr ast Patitiffany t: GALE ESPINOZA : 1994 Ashely t Phone: -- MRI ANKLE RIGHT W/WO HISTOR [...] fibula toward calcan eus and talus. The division sergeant ior talofi bular ligame nt is ill-de fined with rather promin ent edema signal along its course . The deltoi d ligame nt appear s intact . There is thicke juan of the tibial spring ligame nt. The anteri or and division sergeant ior inferi or tibiof ibular ligame nts appear intact , as does intero sseous ligame nt, though there is joint fluid extend ing superi radha betwee n the tibia and fibula , sugges ting prior sprain of the syndes mosis. Tendon s: Tibial is division sergeant ior appear s intact , with small [...] normal . IMPRES NAYELY: 1. Tibial is division sergeant ior tenosy noviti s with narrow neck [...] nt fibers along the course of the division sergeant ior tibiof ibular ligame nt may relate to remote injury or repeti tive stress . 3. Perone us brevis and perone us longus tendin opathy , with partia l-thic kness split tear of perone us brevis . Electr onical ly signed : 019 8:33 AM Ranjit griffin M.D. Contac t: Patien t: GALE ESPINOZA Appt No: [id number] Orderi ng physic klever: ROSA OKEEFE MD Exam Date: 2018 Finali zed: 2018 Imagin g Center : [facility] Imagin g [email or web address] [facility] [address] [place] [address], [address], 05/06/2019 13:53:34 Result Notes None recorded. Problems Name Problem SNOMED Code Status Onset Date Resolution Date Notes Provider Name and Address Organization Details Recorded Time Ganglion/sy novial cyst - ankle/foot Active 2018 Rosa Hawkins rn, MD [address] [facility] [address], [place], [address] , [facility] 9 09:46:58 Closed fracture of fifth metatarsal bone of right foot 7630767183892 9109 Active 2017 Rosa Hawkins rn, MD [address] [address], [place], [address], [facility] 8 13:03:17 Sesamoiditi s 32763023 Active 2017 Rosa Hawkins rn, MD [address] [address], [place], [address], [facility] 8 15:41:17 Problem Notes None recorded. Procedures Surgical History Date Name Laterality Status Provider Name and Address Organization Details Recorded Time 9 FnA Aspiration Ganglion Cyst completed Rosa Duran MD [address],[facility] [address], [place], [address], [facility] 03/10/2019 09:38:06 Orthopedic Surgery completed Latoya Mccartney [facility] 11/16/2019 16:23:34 ENT Surgery completed [facility] 01/08/2018 14:02:44 Orthopedic Surgery completed [facility] 03/10/2019 09:25:17 Imaging Results None recorded. Procedure Notes None recorded. Medical Equipment None Reported. Allergies Allergen ID Allergen Name Allergen Category Reaction Reaction Severity Criticality Documentation Date Start Date Code Code System Note Provider Name and Address Organization Details Recorded Time 28279 Substance with sulfonami de structure and antibacte rial mechanism of action (substanc e) medicatio n Not available Not available Not available 01/08/2018 77729 8003 SNOMED [facility]. 8 14:01:06 67961 amoxicill in medicatio n Not available Not available Not available 01/08/2018 723 RxNorm [facility]. 8 14:01:13 Medications Name Sig Start Date [...] Updated DateTime 11/17/2019 167.64 cm 22.6 kg/m2 71549.93 g [facility] 11/17/2019 11:22:12 Date Recorded Body height Body mass index (BMI) Body weight Respiratory rate Provider Name and Address Organization Details Last Updated DateTime 02/23/2018 167.64 cm 22.6 kg/m2 02464.93 g 14 /min [facility] 02/23/2018 10:21:55 Date Recorded Body height Body mass index (BMI) Body weight Provider Name and Address Organization Details Last Updated DateTime 03/10/2019 167.64 cm 22.6 kg/m2 83452.93 g [facility] 03/10/2019 08:34:47 Date Recorded Body height Body mass index (BMI) Body weight Respiratory rate Provider Name and Address Organization Details Last Updated DateTime 08/12/2018 167.64 cm 22.6 kg/m2 18790.93 g 14 /min [facility] 08/12/2018 07:57:52 Date Recorded Body height Body mass index (BMI) Body weight Provider Name and Address Organization Details Last Updated DateTime 08/18/2019 167.64 cm 22.6 kg/m2 84986.93 g Stephania Muñizaviz [facility] 08/18/2019 11:38:49 Social History Question Answer Notes LastModified by Organizat ion Details LastModified Time Tobacco Smoking Status Never Smoker Latoya Mccartney hilaria, [facility] 01/08/2018 14:02:22 In The Last 30 [...] SNOMED-CT Code Diagnosis ICD10 Code Diagnosis Note [id number] Rosa griffin MD [facility] [address] [facility] [address] [place] [address] 01/08/2018 12:38:41 01/08/2018 13:29:17 Closed fracture of fifth metatarsal bone of right foot 5641727715 7073873 S92.351A 269361 MD [facility] [address] [place] [address] 02/23/2018 10:13:38 02/23/2018 15:14:59 Closed fracture of fifth metatarsal bone of right foot 5123870624 7245739 S92.351A [id number] Rosa griffin MD [facility] [address] [place] [address] 08/12/2018 07:40:48 08/12/2018 08:58:18 Pain in right foot 6774929790 64586 M79.671 Closed fra cture of fifth metatarsal bone of right foot 6149118191 3354534 S92.351A Sesamoiditis 62758195 M2 5.871 [id number] Rosa griffin MD [facility] [address] [place] [address] 03/10/2019 08:22:29 03/16/2019 08:06:59 Ganglion/synovial cyst - ankle/foot 107214943 M67.472 [id number] Rosa griffin MD [facility] [address] [place] [address] 08/18/2019 11:31:49 08/18/2019 13:19:03 Closed fracture of fifth metatarsal bone of right foot 4703861792 3593433 S92.351A Ganglion/s ynovial cyst - ankle/foot 450440318 M67.472 [id number] Rosa griffin MD zzz [facility] Operating [address] [place] [address] [address] [place] [address] 11/05/2019 06:59:54 11/14/2019 10:14:07 [id number] Rosa griffin MD [facility] [address] [place] [address] 11/17/2019 09:12:22 11/17/2019 10:19:57 Ganglion cyst of left ankle 6083108332 7214030 M67.472 Ganglion/s ynovial cyst - ankle/foot 708009887 M67.472 Closed fra cture of fifth metatarsal bone of right foot 5677446334 7127536 S92.351A Sesamoiditis 78479945 M2 5.871 Health Concerns Section Related Observation LastModified by Organization Detai ls LastModified Time None Recorded Concern Status LastModified by Organization Details LastModified Time None Recorded Advance Directives Directive None Recorded Payers Insurance Date Sequence Insurance Name Policy Number Policy Street Covered Member ID Street Member ID Guarantor Name 11/22/2019 1 [place] [facility] [place] [id number] Janeth Espinoza [id number] Dayanna Espinoza Notes Date Note Type [...] soccer going forward. Rosa Duran MD [address], [place], [address], [facility] 02/24/2018 16:54:03 08/12/2018 text/html FNA EXT PATIENT HPIReported bypatient.Laterality Right plantar sesamoid pain, technical trainer would tape for soccer games Secondary [...] the area. Rosa Duran MD [address], [place], [address], [facility] 08/17/2018 07:05:09 03/10/2019 text/html Patient presents [...] persisted. She had an ultrasound done by street cleaning equipment operator which showed a cystic area collection could be hematoma or seroma. This changed not decreased in size since her ultrasound. Not painful in any capacity. Has an abrasion slightly distal to this but this is from shoe wear. In his recent about a week or so before him. Rosa Duran MD [address] [facility],[address], [place], [address], [facility] 03/12/2019 13:49:46 08/18/2019 text/html [...] wear with it. Rosa Duran MD [address] [facility], [place], [address], [facility] 08/23/2019 10:41:51 11/17/2019 text/html [id number] Repo rted bypatient.Onset/Fermín n11/05/2019- right foot repair of posteiror tibial tendon, excision of ganglion cyst, removal of right foot deep suture Associated Symptoms:no pain; no fever Two weeks postop. No problems noted denies fevers chills or calf pain. Rosa Duran MD [address] [facility], [place], [address], [facility] 11/22/2019 11:04:11 OBGyn Episode No OBEpisode recorded.
[2025-02-22 11:51] LABS: MANUAL DIFF FLAG NO
[2025-02-22 11:59] LABS: Basophils Absolute Auto 0.1 X10*3/uL (0.0-0.2); Basophils Percent Auto 0.8 % (0-2); Eosinophils Absolute Auto 0.2 X10*3/uL (0.0-0.4); Eosinophils Percent Auto 3.9 % (0-4); Hematocrit 40.5 % (37.0-47.0); Imm Gran Abs Auto 0.02 X10*3/uL (0.00-0.03); Imm Gran Pct Auto 0.3 % (0.0-0.4); Lymphocytes Absolute Auto 2.6 X10*3/uL (1.2-4.9); Lymphocytes Percent Auto 43.1 % (20-40); Mean Corpuscular HGB Conc 32.1 g/dl (31.0-35.0); Mean Corpuscular Hemoglobin 30.3 pg (27.0-33.0); Mean Corpuscular Volume 94.4 fL (80.0-98.0); Mean Platelet Volume 11.1 fL (9.4-12.3); Monocytes Absolute Auto 0.4 X10*3/uL (0.1-1.2); Monocytes Percent Auto 6.4 % (2-11); Neutrophils Absolute Auto 2.8 x10*3/uL (2.0-8.3); Neutrophils Percent Auto 45.5 % (45-73); Platelet Count 302 X10*3/uL (160-400); Red Blood Count 4.29 X10*6/uL (4.20-5.50); Red Cell Distribution Width 12.9 % (11.0-16.0); White Blood Count 6.1 X10*3/uL (4.8-10.8)
[2025-02-22 12:36] LABS: Alanine Aminotransferase 17 U/L (0-31); Albumin Level 4.6 g/dL (3.5-5.0); Alkaline Phosphatase 76 U/L (39-117); Anion Gap 10 (12-20); Aspartate Amino Transferase 27 U/L (5-31); Bilirubin Total 0.3 mg/dL (0.0-1.0); Blood Urea Nitrogen 13 mg/dL (9-16); Calcium 9.7 mg/dL (8.4-10.2); Carbon Dioxide 28 mmol/L (22-29); Chloride 105 mmol/L (96-108); Cholesterol 189 mg/dL (<200); Estimated Glomerular Filt Rate > 60; Glucose Fasting 93 mg/dL (60-99); HDL Cholesterol 48 mg/dL (>40); LDL Cholesterol Calculated 121 mg/dL (<100); Potassium 3.9 mmol/L (3.3-5.1); Sodium 139 mmol/L (135-145); TSH reflex Free T4 3.15 uIU/mL (0.32-4.0); Total Protein 7.3 g/dL (6.5-8.0); Triglycerides 103 mg/dL (<150)
[2025-02-22 12:46] LABS: Folate 6.2 ng/mL (> or = 4.0); Vitamin B12 531 pg/mL (200-900)
== END 2025-02-22 07:34 | disposition home or self-care (01) ==
LOC: HO.WFDLDS 07:33
PROVIDERS: Visit Provider Physician Assistant
DX: Z00.00 Encounter for general adult medical examination without abnormal findings (principal); F90.9 Attention-deficit hyperactivity disorder, unspecified type; F34.1 Dysthymic disorder; F41.1 Generalized anxiety disorder
CPT/HCPCS: 36415; 80053; 80061; 82607; 82746; 83735; 84443; 85025